=== PATIENT | male | born 1940 | race Caucasian/White ===

== ENCOUNTER 2018-10-16 12:43 | Outpatient (REF) | payer MEDICARE, BC, SELFPAY ==
[2018-10-16 17:01] LABS: HCT 51.7 % (40.0-50.0); HGB 16.7 g/dL (13.5-17.5); Mean Corp. HGB Concentration 32.3 g/dL (32.0-36.0); Mean Corpuscular Hemoglobin 29.5 pg (27.0-33.0); Mean Corpuscular Volume 91.2 fL (80-95); Mean Platelet Volume 11.7 fL (8.0-11.0); Platelet Count 202 x1000/uL (130-400); RBC 5.67 m/cumm (4.50-6.00); RBC Distribution Width 15.3 % (11.8-14.1); White Blood Cell Count 9.86 k/cumm (4.4-10.8)
[2018-10-16 17:14] LABS: ALT 39 U/L (12-78); AST 30 U/L (15-37); Albumin 3.9 g/dL (3.4-5.0); Alkaline Phosphatase 141 U/L (46-116); Anion Gap 7.6 mmol/L (3-11); BUN 20 mg/dL (7-18); Bilirubin, Total 0.7 mg/dL (0.2-1.0); CO2 30.4 mmol/L (21.0-32.0); CREATININE 1.25 mg/dL (0.70-1.30); Calcium 9.3 mg/dL (8.5-10.1); Chloride 105 mmol/L (98-107); Estimated GFR 55.86 (mL/min/1.73m2); Glucose 74 mg/dL (70-100); Potassium 3.8 mmol/L (3.5-5.1); Sodium 143 mmol/L (136-145); TSH 1.17 uIU/mL (0.358-3.74); Total Protein 7.4 g/dL (6.4-8.2)
[2018-10-16 18:53] LABS: Hemoglobin A1C 5.9 % (4.5-6.2)
== END 2018-10-16 13:03 ==
LOC: NCHCN 12:43
PROVIDERS: PCP Internal Medicine; Visit Provider Internal Medicine
DX: R03.0 Elevated blood-pressure reading, without diagnosis of hypertension (principal); R60.0 Localized edema; R73.01 Impaired fasting glucose; R42 Dizziness and giddiness; M48.00 Spinal stenosis, site unspecified
CPT/HCPCS: 80053; 85027; 83036; 84443

== ENCOUNTER 2019-01-08 22:05 | Outpatient (REF) | payer MEDICARE, BC, SELFPAY ==
[2019-01-08 22:34] LABS: Anion Gap 8.4 mmol/L (3-11); BUN 18 mg/dL (7-18); CO2 24.6 mmol/L (21.0-32.0); CREATININE 1.22 mg/dL (0.70-1.30); Calcium 8.9 mg/dL (8.5-10.1); Chloride 105 mmol/L (98-107); Estimated GFR 57.45 (mL/min/1.73m2); Glucose 155 mg/dL (70-100); Potassium 4.1 mmol/L (3.5-5.1); Sodium 138 mmol/L (136-145)
== END 2019-01-08 22:25 ==
LOC: NCHCN 22:05
PROVIDERS: PCP Internal Medicine; Visit Provider Internal Medicine
DX: R03.0 Elevated blood-pressure reading, without diagnosis of hypertension (principal); I63.9 Cerebral infarction, unspecified
CPT/HCPCS: 80048

== ENCOUNTER 2019-10-25 11:12 | Outpatient (REF) | payer MEDICARE, BC, SELFPAY ==
[2019-10-25 21:23] LABS: Abs Immature Grans 0.03 k/cumm (0.0-0.09); Absolute Basophil Count 0.03 k/cumm (0.0-0.2); Absolute Lymphocyte Count 1.38 k/cumm (1.2-3.4); Basophils % 0.3; Eosinophils % 1.8; HCT 42.7 % (40.0-50.0); HGB 13.9 g/dL (13.5-17.5); Immature Grans % 0.3 %; Lymphocytes % 12.1; Mean Corp. HGB Concentration 32.6 g/dL (32.0-36.0); Mean Corpuscular Hemoglobin 28.6 pg (27.0-33.0); Mean Corpuscular Volume 87.9 fL (80-95); Mean Platelet Volume 10.4 fL (8.0-11.0); Monocytes % 8.8; Neutrophils % 76.7; Platelet Count 384 x1000/uL (130-400); RBC 4.86 m/cumm (4.50-6.00); RBC Distribution Width 13.3 % (11.8-14.1); White Blood Cell Count 11.42 k/cumm (4.4-10.8)
[2019-10-25 21:24] LABS: Absolute Eosinophil Count 0.21 k/cumm (0.0-0.7); Absolute Neutrophil Count 8.76 k/cumm (1.2-6.7)
[2019-10-25 21:41] LABS: ALT 26 U/L (16-63); AST 21 U/L (15-37); Albumin 2.9 g/dL (3.4-5.0); Alkaline Phosphatase 193 U/L (46-116); Anion Gap 9.5 mmol/L (3-11); BUN 19 mg/dL (7-18); Bilirubin, Total 0.4 mg/dL (0.2-1.0); CO2 26.5 mmol/L (21.0-32.0); CREATININE 1.12 mg/dL (0.70-1.30); Calcium 9.8 mg/dL (8.5-10.1); Chloride 105 mmol/L (98-107); Glucose 111 mg/dL (74-106); Sodium 141 mmol/L (136-145); TSH 1.45 uIU/mL (0.36-3.74)
== END 2019-10-25 11:32 ==
LOC: NCHCN 11:12
PROVIDERS: PCP Internal Medicine; Visit Provider Internal Medicine
DX: R19.7 Diarrhea, unspecified (principal)
CPT/HCPCS: 80053; 84443; 85025

== ENCOUNTER 2019-10-26 21:42 | Outpatient (REF) | payer MEDICARE, BC, SELFPAY ==
[2019-10-29 11:46] LABS: Campylobacter PCR Negative (Negative); Salmonella PCR Negative (Negative); Shiga Toxin PCR Negative (Negative); Shigella/Enteroinvasive Ecoli Negative (Negative)
== END 2019-10-26 22:02 ==
LOC: NCHCN 21:42
PROVIDERS: PCP Internal Medicine; Visit Provider Internal Medicine
DX: R19.7 Diarrhea, unspecified (principal)
CPT/HCPCS: 87505; 87177; 87324

== ENCOUNTER 2019-11-17 11:15 | Inpatient (IN) | payer MEDICARE, BC, SELFPAY ==
[2019-11-17] VITALS (58 sets, daily range): BP systolic 75–226; BP diastolic 59–208; PULSE 62–114; RESP 11–25; TEMP 36.9–37.7; O2SAT 82–96
--- NOTE | 2019-11-17 12:06 | ED.GENADUL_ITS ---
Discharge Plan Disposition Patient Disposition: [facility] INPATIENT Condition: Serious Discharge Details Chief Complaint: GenMedical Clinical Impression: Lung cancer metastatic to bone Primary Care Provider: Ghazala Clements ED Provider: Sammy Crespo Home Meds and New Rx's Prescriptions: No Action dexamethasone 2 mg Tablet 2 mg PO BID RF: 0 gabapentin 300 mg Capsule 300 mg PO TID RF: 0 morphine 15 mg Tablet Extended Release 15 mg PO BID RF: 0 oxycodone 5 mg Tablet 5 - 10 mg PO .Q4-6 HOURS RF: 0 atorvastatin 40 mg Tablet 40 mg PO DAILY RF: 0 glucosamine sulfate 500 mg Tablet 1,500 mg PO DAILY PRNRF: 0 aspirin [Aspirin Low Dose] 81 mg Tablet,Delayed Release (Dr/Ec) 81 mg PO DAILY RF: 0 escitalopram oxalate 10 mg Tablet 10 mg PO DAILY RF: 0 melatonin 5 mg Tablet 10 mg PO DAILY PRNRF: 0 Medical Decision Making 79-year-old male with a distant history of bladder cancer, neobladder for which he self caths, status post renal cancer, who was admitted to [facility] 2 weeks ago with a new diagnosis of chest masses that he states is large cell lung cancer. He received 10 days of radiation in the hospital and around discharge. He presents today due to increasing pain from known right neck mass. He was started on oral morphine 30 mg twice daily that was weaned to 15 mg 1 day ago due to oversedation. He also has oxycodone 10 mg tablets. He arrives with a temp of 37, pulse 100, pressure 159/96. 92% sat on room air. Records obtained and reviewed. Patient has bone metastases involving C7 and T1 vertebral bodies based on records from [facility]. The mass is abutting the C8 nerve root. He has been taking dexamethasone with recent schedule of 2 mg twice daily for 1 week, then 2 mg daily x3 days, then 1 mg daily x3 days as a taper. Clinic notes will indicate some increase in pain after first attempt a dexamethasone taper. He is scheduled to see oncology as an outpatient early November to discuss chemotherapy options. Labs: Sodium 137, potassium 4.5, chloride 99, BUN 26 and creatinine 1.0, AST 20, ALT 32, alk phos 198. CBC with white count 21, hematocrit 40, platelets 270. Elevated white blood cell count may be due to either recent radiation or high- dose steroids. Imaging: No evidence of acute intracranial process. Findings suggestive of metastatic disease involving the C7 vertebral body, possible nondisplaced fracture of the left transverse process of T1. There is 3 cm right upper lobe medial lung mass, bony destructive disease at the T7 vertebral body, possible right vocal cord mass. 1.6 cm hypodense mass in the right lobe of the liver. Bony lysis of L2 vertebral body. Possible additional area of bony lysis of the left ilium. Please see formal report. Following ministration of analgesia, patient's blood pressure improved, pulse dropped approximately 25 points. He did also require PRN use of oxygen and is become mildly agitated and anxious. His stated he has had poor reactions to benzodiazepines in the past, he did have some pruritus from the narcotic and therefore administered Benadryl. Patient has had some control of his pain, but I do feel would benefit from an admission for symptom control and consideration of consultation with palliative care. I was able to speak to Dr. Choudhury, who recommended placement of a Duragesic patch and the use of IV morphine overnight. I have consulted her formally to see the patient as well. After approximate 5 hours of care, patient became somewhat more delirious and pulled out his IV. He was given Haldol for agitation and soft restraints were applied for danger of the patient pulling additional lines or tubes. I discussed the case with on-call hospitalist medicine at [facility], no bed available for non-ICU transfer at [facility]. Patient to be admitted to the hospitalist service. HPI General Mode of arrival: ambulatory . Date/Time Provider Initiated Documentation: 11/17/19 11:16 . Limitations to Documentation: no limitations . Information obtained by: patient and family . History of Present Illness 79 year old M presents to the emergency department with the chief complaint of Neck and back pain, recent diagnosis lung cancer, described as moderate, and is localized to the neck, chest, back and right. Patient reports no radiation. Patient started experiencing this day(s) and it has been intermittent. No relieving factors improve symptom(s), No exacerbating factors reported . Patient notes other (Right arm weakness and right pinky numbness). Patient did receive the following treatments prior to arrival, other (Prescription narcotics) Related Data Home Medications Medication Instructions Recorded Confirmed aspirin [Aspirin Low Dose] 81 mg PO DAILY 11/17/19 11/17/19 atorvastatin 40 mg PO DAILY 11/17/19 11/17/19 dexamethasone 2 mg PO BID 11/17/19 11/17/19 escitalopram oxalate 10 mg PO DAILY 11/17/19 11/17/19 gabapentin 300 mg PO TID 11/17/19 11/17/19 glucosamine sulfate 1,500 mg PO DAILY PRN 11/17/19 11/17/19 melatonin 10 mg PO DAILY PRN 11/17/19 11/17/19 morphine 15 mg PO BID 11/17/19 11/17/19 oxycodone 5 - 10 mg PO .Q4-6 HOURS 11/17/19 11/17/19 Allergies Allergy/AdvReac Type Severity Reaction Status Date / Time No Known Allergies Allergy Unverified 11/17/19 11:31 General Stated Complaint: GenMedical MARI: 3 Review of Systems Narrative: No fever, chills, fall, headache. No chest pain or shortness of breath. Complains of right neck pain that was worse this morning. 6 systems reviewed and otherwise negative. [facility] Social History Smoking/Tobacco Use Status: Former Tobacco Use Alcohol Intake: current Alcohol type: beer Substance use type: does not use Exam Narrative Exam Narrative: GEN: awake, alert, oriented 3. Pleasant, well groomed, interactive. HEAD: Normocephalic, atraumatic ENT: Mucous membranes moist, oropharynx partially edentulous, External ear exam unremarkable EYES: PERRL, EOMI NECK: Full ROM, no OBIE, no menigismus CHEST/RESP: Nontender, diminished bilateral, no wheeze/rhonchi/rales CARDIOVASCULAR: RRR, no murmur, rub morena. 2+ Rad pulse bilateral ABDOMEN: Soft, nontender, no mass. +Bowel sounds EXT: Right hand weakness. Patient unable to make the okay sign. Weak flexion of all fingers. Decreased sensation overlying fifth digit. Left upper extremity unremarkable. Ecchymosis on bilateral upper extremities. Neuro: Grossly normal neurologic exam, conversant, interactive. Psych: Speech fluent, thoughts congruent, affect normal Course Vital Signs Vital signs: Vital Signs Temperature 37.1 C 11/17/19 11:24 Pulse 101 H 11/17/19 11:24 Respiratory Rate 16 11/17/19 11:24 Blood Pressure 159/96 H 11/17/19 11:24 Pulse Oximetry 91 L 11/17/19 11:24 Temperature 37.1 C 11/17/19 11:24 Temperature Source Skin 11/17/19 11:24 Pulse 101 H 11/17/19 11:24 Respiratory Rate 22 11/17/19 11:39 Respiratory Effort 11/17/19 11:39 Respiratory Depth Normal 11/17/19 11:39 Respiratory Pattern Normal 11/17/19 11:39 Blood Pressure 159/96 H 11/17/19 11:24 Blood Pressure Position Sitting 11/17/19 11:24 Pulse Oximetry 91 L 11/17/19 11:24 Oxygen Delivery Method Room Air 11/17/19 11:24 Oxygen Flow Rate 0 11/17/19 11:24 Pain Level 8 11/17/19 11:24
[2019-11-17] MEDS: HYDROmorphone 2 MG/ML VIAL 0.5 MG IVP ×2 (12:08→15:31)
[2019-11-17 12:17] LABS: Absolute Eosinophil Count 0.06 k/cumm (0.0-0.7); Absolute Lymphocyte Count 0.71 k/cumm (1.2-3.4); Absolute Neutrophil Count 18.51 k/cumm (1.2-6.7); Eosinophils % 0.3; HCT 40.9 % (40.0-50.0); HGB 13.1 g/dL (13.5-17.5); Immature Grans % 0.5 %; Lymphocytes % 3.3; Mean Corpuscular Hemoglobin 28.2 pg (27.0-33.0); Mean Corpuscular Volume 88.1 fL (80-95); Mean Platelet Volume 10.3 fL (8.0-11.0); Monocytes % 9.3; Neutrophils % 86.6; RBC 4.64 m/cumm (4.50-6.00); RBC Distribution Width 14.6 % (11.8-14.1); White Blood Cell Count 21.37 k/cumm (4.4-10.8)
[2019-11-17 12:18] LABS: Absolute Monocyte Count 1.99 k/cumm (0.11-0.7)
[2019-11-17 12:28] LABS: INR 1.1 (0.9-1.1)
[2019-11-17 12:29] LABS: Basophilic Stippling Present; Diff Comment Agrees w/ Instrument; Platelet Count 270 x1000/uL (130-400)
[2019-11-17 12:30] LABS: ALT 32 U/L (16-63); AST 20 U/L (15-37); Albumin 2.3 g/dL (3.4-5.0); Alkaline Phosphatase 198 U/L (46-116); Anion Gap 8.3 mmol/L (3-11); BUN 26 mg/dL (7-18); Bilirubin, Total 0.7 mg/dL (0.2-1.0); CO2 29.7 mmol/L (21.0-32.0); CREATININE 1.03 mg/dL (0.70-1.30); Calcium 9.2 mg/dL (8.5-10.1); Chloride 99 mmol/L (98-107); Glucose 114 mg/dL (74-106); Magnesium 1.8 mg/dL (1.8-2.4); Poikilocytes 1+; Polychromasia Present; Potassium 4.5 mmol/L (3.5-5.1); Sodium 137 mmol/L (136-145); Total Protein 6.3 g/dL (6.4-8.2)
[2019-11-17] MEDS: HYDROmorphone 2 MG/ML VIAL 1 MG IVP (12:53)
--- NOTE | 2019-11-17 13:14 | DI.CT_ITS ---
EXAM: CT HEAD CERVICAL SPINE WO CLINICAL HISTORY: LUNG CA, NECK MASS, PAIN TECHNIQUE: Imaging Protocol: Axial computed tomography images with coronal and sagittal reformatted images were created and reviewed COMPARISON: No exams were available for comparison FINDINGS: Head CT Ventricles and Extra axial spaces: Normal in size and morphology for the patient's age. Hemorrhage: None. Cerebral parenchyma: Mild white matter changes of small vessel disease. Midline shift: None. Brainstem/Cerebellum: Normal. Calvarium: A lucency is seen in the frontal skull, which could represent a metastatic lesion or multi ple myeloma. Other smaller low-density lesions are questioned. Visualized Paranasal sinuses/Mastoids: Clear. IMPRESSION: Lytic lesion in the frontal skull suspicious for metastatic lesion. No acute abnormality is seen in t he brain. FINDINGS: Cervical Spine CT BONES: There is a nondisplaced fracture through the left transverse process T1. No other areas of acu te fracture are seen. There is a large area of abnormal lucency with a lytic lesion involving the C7 vertebral body, eccentric toward the right. There is some surrounding soft tissue mass. There are o ther lucencies seen in more superior vertebral bodies. Findings are highly suspicious for metastatic disease. There has been previous laminectomy from C3 through T1. Extensive degenerative changes ar e noted throughout. SOFT TISSUES: No paraspinal hematoma. The airway appears intact. Degenerative disc changes and facet degenerative changes are seen . IMPRESSION: Findings suspicious for widespread bony metastases, with the largest lytic lesion involving C7. Ther e is a fracture of the left transverse process of T1. DATA REPOSITORY: All CT scans at this facility are submitted to the National Radiology Data Registry (NRDR) Dose Index Registry (DIR) with the [employer] (ACR). RADIATION OPTIMIZATION: All CT scans at this facility use at least one of these dose optimization te chniques: automated exposure control; mA and/or kV adjustment per patient size (includes targeted exa ms where dose is matched to clinical indication); or iterative reconstruction.
--- NOTE | 2019-11-17 13:24 | DI.CT_ITS ---
EXAM: CT NECK CHEST ABD AND PEL W CLINICAL HISTORY: BACK PAIN, LUNG CANCER TECHNIQUE: Images were performed from the clavicles through the ischial tuberosities after IV and wi thout oral contrast. The exam is limited by respiratory motion. COMPARISON: CT HEAD CERVICAL SPINE WO from 11/17/2019 FINDINGS: Chest: There is a spiculated-appearing mass seen in the right upper lobe medially adjacent to the lef t superior hilum. The findings are highly suspicious for primary lung carcinoma. The mass measures roughly 3.7 cm AP x 2.3 cm transverse x 4.5 cm cephalocaudad. There are a few other smaller adjacent nodules. There are underlying emphysematous changes greatest at the lung apices. There is basilar atelectasis and fibrotic changes. There are small hilar and mediastinal lymph nodes. There is a tra ce pericardial effusion. The aorta is normal in diameter. Esophagus contains air and debris. A lar ge lytic lesion is seen in the T1 vertebral body. There are other areas of lucency throughout the sp ine, which also likely represent metastatic disease. There has been apparent fusion in the midthorac ic spine. Metastatic lesions are more difficult to detect given underlying osteopenia. There is a ly tic lesion in the left scapula with surrounding soft tissue mass. Abdomen and pelvis: There are several ill-defined lesions in the liver suspicious for metastatic lesi ons. The largest is anteriorly in the right lobe and measures 1.6 cm. There is no biliary dilatatio n. Stone versus polyp is seen in the gallbladder. There is no abnormal gallbladder wall thickening or distention. The spleen, pancreas and adrenals are unremarkable. There are multiple bilateral bibiana al cysts. There is some inferior parenchymal scarring on the left kidney as well as a calcification. No hydronephrosis is seen. There is a large parapelvic cyst on the left. There is a 12 millimeter nodule posterior to the left adrenal gland suspicious for a metastatic nodule. There are a few other small mesenteric deposits. Patient is status post prostatectomy. The urinary bladder is not seen. There has been previous bowel surgery. No bowel dilatation is seen. No free air or free fluid is pr esent. Multiple lucencies are seen throughout the spine as well as pelvis consistent with metastatic disease. IMPRESSION: Right upper lobe lung mass. Extensive bony metastases. Liver metastases.
[2019-11-17] MEDS: Omnipaque 350 MG/ML 100 ML BTL IJ (13:41)
[2019-11-17] MEDS: Omnipaque 350 MG/ML 50 ML BTL IJ (13:41)
--- NOTE | 2019-11-17 13:58 | DI.VRAD_ITS ---
PROCEDURE INFORMATION: Exam: CT Head Without Contrast Exam date and time: 11/17/2019 12:03 PM Age: 79 years old Clinical indication: Neck pain and other: Mass, lung CA TECHNIQUE: Imaging protocol: Computed tomography of the head without contrast. COMPARISON: No relevant prior studies available. FINDINGS: Chronic white matter changes of probable small vessel disease. No evidence of hemorrhage. No mass effect. No acute intracranial abnormality. IMPRESSION: No evidence of acute intracranial process. PROCEDURE INFORMATION: Exam: CT Cervical Spine Without Contrast Exam date and time: 11/17/2019 12:03 PM Age: 79 years old Clinical indication: Neck pain and other: Mass, lung CA TECHNIQUE: Imaging protocol: Computed tomography images of the cervical spine without contrast. COMPARISON: No relevant prior studies available. FINDINGS: Extensive prior laminectomy at C3 through the top of the thoracic spine and below the level of imaging. Marked diffuse degenerative disc and facet disease. Reversal of the normal cervical lordosis. No focal subluxation. Suggestion of bony lysis of the inferior and right portions of the C7 vertebral body. Metastatic disease would have to strongly be considered. Possible nondisplaced fracture of the left transverse process of T1. IMPRESSION: 1. Findings suggesting metastatic disease involving the C7 vertebral body. 2. Possible nondisplaced fracture of the left transverse process of T1. 3. Extensive prior cervical laminectomy. Dictated and Authenticated by: Son Joy MD. Ordering:ANTONELLA Christianson MD
--- NOTE | 2019-11-17 14:38 | DI.VRAD_ITS ---
PROCEDURE INFORMATION: Exam: CT Neck With Contrast Exam date and time: 11/17/2019 1:23 PM Age: 79 years old Clinical indication: Other: Back pain, neck pain; Other: Neck mass, lung CA; Mass, lump, or swelling in neck TECHNIQUE: Imaging protocol: Computed tomography images of the neck with intravenous contrast. COMPARISON: No relevant prior studies available. FINDINGS: Marked asymmetry to the larynx with a possible mass involving the right vocal cord. Bony destructive process involving the T7 vertebral body consistent with metastatic disease without a significant soft tissue component. Suggestion of a nondisplaced fracture of the left transverse process of T1. No significant cervical adenopathy. 3 cm right upper lobe medial lung mass consistent with a primary bronchogenic carcinoma. IMPRESSION: 1. Metastatic disease to the lower cervical spine with a right upper lobe mass suggesting a primary malignancy. 2. Possible right vocal cord mass. PROCEDURE INFORMATION: Exam: CT Chest With Contrast Exam date and time: 11/17/2019 1:23 PM Age: 79 years old Clinical indication: Other: Back pain, neck pain; Other: Neck mass, lung CA; Mass, lump, or swelling in neck TECHNIQUE: Imaging protocol: Computed tomography of the chest with intravenous contrast. COMPARISON: No relevant prior studies available. FINDINGS: Approximate 3 cm medial right upper lobe mass suggesting a primary bronchogenic carcinoma. Chronic lung disease with emphysematous change. Bibasilar consolidation right greater than left most likely representing atelectasis. Lytic lucency to the left posterolateral aspect of the T10 vertebral body suggesting metastatic disease. IMPRESSION: Findings consistent with a primary bronchogenic carcinoma with metastatic disease to the lower thoracic spine. PROCEDURE INFORMATION: Exam: CT Abdomen And Pelvis With Contrast Exam date and time: 11/17/2019 1:23 PM Age: 79 years old Clinical indication: Other: Back pain, neck pain; Other: Neck mass, lung CA; Mass, lump, or swelling in neck TECHNIQUE: Imaging protocol: Computed tomography of the abdomen and pelvis with intravenous contrast. COMPARISON: No relevant prior studies available. FINDINGS: 1.6 cm hypodense mass in the right lobe of the liver suggesting metastatic disease with a possible 1 cm mass slightly more superior and anterior and 1 other 7 mm more inferior and lateral. Cholelithiasis. Multiple renal cysts. Bony lysis of the left posterolateral aspect of the L2 vertebral body extending into the lamina and pedicle consistent with metastatic disease. No significant involvement of the central canal is present. Bony lysis of the left iliac wing consistent with metastatic disease. Possible additional areas of bony lysis in the left ilium adjacent to the left SI joint. Diffuse degenerative disc and facet disease of the lumbar spine. Prior prostatectomy. No focal inflammatory process. No significant free fluid. IMPRESSION: Hepatic and bony metastatic disease as outlined above. Dictated and Authenticated by: Son Joy MD. Ordering:ANTONELLA Christianson MD
[2019-11-17] MEDS: diphenhydrAMINE 50 MG/ML VIAL 25 MG IVP (15:32)
[2019-11-17] MEDS: Haloperidol 5 MG/ML VIAL 4 MG IM/IV (16:47)
--- NOTE | 2019-11-17 16:51 | HPE_ITS ---
Date of service: 11/17/19 Time of Service: 16:51 Assessment and Plan Assessment and plan (1) Lung cancer: Start date: 11/17/19 Start time: 17:06 Status: Chronic Assessment and plan: Diagnosis of Lung Ca with bone mets in last 2 weeks at [facility], 10 rounds radiation. Presents for worsening pain. Will start on fentanyl patch, IV morphine for and steroid burst. Agitated at times. Head CT without Brain mets. Lorazepam for agitation Palliative to see patient. (2) Bone metastases: Start date: 11/17/19 Start time: 17:07 Status: Acute Assessment and plan: As above (3) Cachexia: Start date: 11/17/19 Start time: 17:07 Status: Acute Assessment and plan: From cancer. (4) History of renal carcinoma: Start date: 11/17/19 Start time: 17:07 Status: Acute Assessment and plan: Bladder cancer with renal carcinoma in remission until recently. New onset Large cell lung ca. see above (5) Neurogenic bladder: Start date: 11/17/19 Start time: 17:09 Status: Acute Assessment and plan: From bladder cancer in the past. Has a stoma and requires self cath. Will continue self cath while in hospital. (6) Hyperlipidemia: Start date: 11/17/19 Start time: 17:09 Status: Acute Assessment and plan: On statin. Continue Above case discussed with Dr. Agudelo who is in agreement. History of Present Illness History of Present Illness Chief Complaint: Lung Ca with Bone mets, pain Narrative: 79 y.o male recently diagnosed with bone mets at [facility]. Found to have Large cell carcinoma with bone mets started on radiation while [place] presents to [facility] today with worsening pain, agitation at times. Imaging in the ED reveals Metastatic disease to the lower cervical spine with a right upper lobe mass suggesting a primary malignancy. Possible right vocal cord mass. He was recently weaned from morphine 30 mg BID to 15 mg 1 day ago for oversedation. Palliative consult placed by the ED. Mr. Ro was agitated when evaluating, pulling at lines and not paying attention to questions. was able to answer questions. PMH included renal carcinoma, bladder cancer with neobladder and stoma which he self caths through stoma, HLD. He is being admitted for pain management. Labs in ED with elevated WBC at 21.37 however recently on dexamethasone for bone pain with 10 rounds radiation, alk phosphate elevated; otherwise unremarkable. No cough, fever. Dr. Choudhury with patient at this time to discuss goals of care. We will admit him to get his pain at comfortable level. Fentanyl patch with hydromorphone for comfort. Prednisone burst for bone pain. He did receive haldol in ED for agitation will have lorazepam IV for agitation prn. Review of Systems All systems reviewed & are unremarkable except as noted in HPI and below PFSH Social History Smoking/Tobacco Use Status: Former Tobacco Use Alcohol Intake: current Alcohol type: beer Substance use type: does not use Meds Home Medications and Allergies Home Medications Medication Instructions Recorded Confirmed Type aspirin [Aspirin Low Dose] 81 mg PO DAILY 11/17/19 11/17/19 History atorvastatin 40 mg PO DAILY 11/17/19 11/17/19 History dexamethasone 2 mg PO BID 11/17/19 11/17/19 History escitalopram oxalate 10 mg PO DAILY 11/17/19 11/17/19 History gabapentin 300 mg PO TID 11/17/19 11/17/19 History glucosamine sulfate 1,500 mg PO DAILY PRN 11/17/19 11/17/19 History melatonin 10 mg PO DAILY PRN 11/17/19 11/17/19 History morphine 15 mg PO BID 11/17/19 11/17/19 History oxycodone 5 - 10 mg PO .Q4-6 HOURS 11/17/19 11/17/19 History Allergies Allergy/AdvReac Type Severity Reaction Status Date / Time No Known Allergies Allergy Unverified 11/17/19 11:31 Exam Const General: anxious and ill appearing Nutritional Appearance: cachectic and malnourished Orientation: alert, awake and other (agitated) [facility] Head: normal to inspection and atraumatic Ears: hearing grossly normal bilaterally Mouth: moist mucous membranes Eyes Conjunctivae: conjunctivae normal Sclera: sclerae normal Pupils: PERRL EOM: EOM intact bilaterally Neck Neck: full ROM and no JVD Lymphatic: no lymphadenopathy noted Chest Chest: normal inspection of the chest Resp Effort & Inspection: normal respiratory effort and able to speak in complete sentences Auscultation: diminished lung sounds Cardio Rate: regular rate Rhythm: regular rhythm Heart Sounds: no gallops and no murmurs GI Palpation: soft and no hepatosplenomegaly Auscultation: normal bowel sounds General: deferred Back/Spine/Pelvis Back: back tenderness Skin Wounds: no wounds Neuro General: alert, awake and other (AGITATED) Extrem Right upper extremity: hand (weakness, decreased sensation) Left upper extremity: normal to inspection and full ROM Right lower extremity: full ROM Left lower extremity: full ROM Psych Mood: anxious mood Results Labs Result diagrams: 11/17/19 11:30 11/17/19 11:30 Labs: Laboratory Results - last 24 hr 11/17/19 11/17/19 11/17/19 11:30 11:30 11:30 WBC 21.37 H RBC 4.64 Hgb 13.1 L Hct 40.9 MCV 88.1 MCH 28.2 MCHC 32.0 RDW 14.6 H Plt Count 270 D MPV 10.3 Immature Gran % 0.5 Neutrophils % 86.6 Lymphocytes % 3.3 Monocytes % 9.3 Eosinophils % 0.3 Basophils % 0.0 Absolute Neutrophils 18.51 H Absolute Lymphocytes 0.71 L Absolute Monocytes 1.99 H Absolute Eosinophils 0.06 Absolute Basophils 0.00 Differential Comment Agrees w/ instrument RBC Morphology See below Polychromasia Present Poikilocytosis 1+ Basophilic Stippling Present PT 11.0 INR 1.1 Sodium 137 Potassium 4.5 Chloride 99 Carbon Dioxide 29.7 Anion Gap 8.3 BUN 26 H Creatinine 1.03 Estimated GFR/1.73 m2 >= 60.00 Glucose 114 H Calcium 9.2 Magnesium 1.8 Total Bilirubin 0.7 AST 20 ALT 32 Alkaline Phosphatase 198 H Total Protein 6.3 L Albumin 2.3 L Urine Color Urine Clarity Urine pH Ur Specific [place] Urine Protein Urine Ketones Urine Blood Urine Nitrite Urine Bilirubin Urine Urobilinogen Ur Leukocyte Esterase Urine Glucose 11/17/19 12:04 WBC RBC Hgb Hct MCV MCH MCHC RDW Plt Count MPV Immature Gran % Neutrophils % Lymphocytes % Monocytes % Eosinophils % Basophils % Absolute Neutrophils Absolute Lymphocytes Absolute Monocytes Absolute Eosinophils Absolute Basophils Differential Comment RBC Morphology Polychromasia Poikilocytosis Basophilic Stippling PT INR Sodium Potassium Chloride Carbon Dioxide Anion Gap BUN Creatinine Estimated GFR/1.73 m2 Glucose Calcium Magnesium Total Bilirubin AST ALT Alkaline Phosphatase Total Protein Albumin Urine Color Cancelled Urine Clarity Cancelled Urine pH Cancelled Ur Specific [place] Cancelled Urine Protein Cancelled Urine Ketones Cancelled Urine Blood Cancelled Urine Nitrite Cancelled Urine Bilirubin Cancelled Urine Urobilinogen Cancelled Ur Leukocyte Esterase Cancelled Urine Glucose Cancelled Last Vital Signs Temp 37.1 C 11/17/19 11:24 Pulse 82 11/17/19 15:16 Resp 15 11/17/19 15:30 BP 141/93 H 11/17/19 15:02 Pulse Ox 95 11/17/19 15:30
--- NOTE | 2019-11-17 16:58 | NUR.NOTE ---
16:35 patient pulling IV out yelling for singer songwriter to not touch him. Swinging, hitting and kicking at staff. [employer] attempted to reorient patient and tried to help with IV and patient continues to yell, kick and hit staff. Placed in soft restraints per MD and Haldol given IM.
[2019-11-17] MEDS: fentaNYL 25 MCG PATCH TD (17:03)
--- NOTE | 2019-11-17 17:11 | NUR.NOTE ---
17:10 patient remains in soft restraints. Argumentative, with staff and MD. Swearing and refusing to let staff touch him.
[2019-11-17] MEDS: Gabapentin 400 MG CAP 1200 MG PO (19:14)
--- NOTE | 2019-11-17 19:42 | PCNE_ITS ---
Date of service: 11/17/19 History of Present Illness History of Present Illness Chief Complaint: Uncontrolled pain. Agitation. New dx of widespread lung cancer. Narrative: I was asked by Dr Jay Crespo from the ER to see Dandy as he was being worked up for admission to [facility] to help control his pain and agitation. Dandy was recently (11/02/19) diagnosed with widely metastatic lung cancer. He has already survived both bladder and renal cancers. This cancer appears to be very aggressive and is in an advanced stage. (IV) His , Gabbi, had asked for palliative care services from inpatient [facility] oncology; she reports that she was told it wasn't time for palliative care yet. Last week, Dandy was in [facility] x 5 nights. Gabbi's brother is an MD and he suggested she again advocate for palliative care at [facility]. Most of Dandy's history I gleaned from his , Gabib. He was agitated, combative, in restraints during my visit with him. 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 He is very angry and suspicious of everyone around him. He was diagnosed just 2 weeks and 2 days prior to his admission with a widespread lung cancer. He was in [facility] x 5 days to receive radiation to his cervical spine as his most severe pain is in his right UE, of a neurological nature with a burning type pain. His is exhausted, overwhelmed and needing someone to guide her through her 's illness. Consults Consult date: 11/17/19 Requesting physician: Sammy Crespo Assessment and Plan Assessment and plan (1) Cachexia: Status: Chronic Assessment and plan: losing weight no appetite thin, with muscle atrophy (2) Bone metastases: Status: Chronic Assessment and plan: pain uncontrolled on admission plan to start is fentanyl patch 25 mcg Dandy pulled out his IV I suspect he would pull out a SC drip of pain meds, at least for now as for his neuropathic pain, will increased from 600 mg daily to 600 mg tid to start, and suspect he will need to increase again to 1200 mg tid, the max dose I don't think he will be able to converse until his pain is controlled. (3) Lung cancer: Status: Chronic Assessment and plan: widely metastatic third cancer he has faced large cell Gabbi says they have apt with oncology week of Nov 26 but at this time Dandy seems to be leaning toward no treatment given the aggressiveness and widespread nature of his disease, could at any time (4) History of renal carcinoma: Status: Chronic Assessment and plan: Has a neobladder. Usually self caths. Given his stroke affecting his left hand and his spinal lesion affecting his right hand, unable to do so now. worried about this. Hospitalist team will have Dr Figueroa see Dandy on Tuesday. In the meantime, left 3 of his usual type catheters and advised though they come lubed, he will need more. She suggested the nurse insert the tip of the catheter into the stoma and then let Dandy finish--but given his state of agitation, he doesn't appear able at this time. 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 Assessment and plan: pain control is his primary medical need at this time chose fentanyl as less likely to peel off patch than pull out SCC or IV at this time also patch will transfer well to home--IF he is able to go home (8) H/O partial nephrectomy: Status: Chronic (9) Agitation: Status: Acute Assessment and plan: advised haldol, until he is calm unclear how much his mental state is due to uncontrolled pain, how much is toxic encephalopathy, apparently does NOT have brain mets but not certain of this (10) Paranoia: Status: Acute Assessment and plan: makes it very hard to interact with him doesn't like emotional of soft approaches, per straight shooter (11) History of stroke with residual effects: Status: Chronic Assessment and plan: right sided stroke with persistent motor effects KASH advise also that right sided strokes make insight into oneself VERY difficult (12) Neuropathic pain: Status: Acute Assessment and plan: increase gabapentin (13) Palliative care patient: Status: Acute Assessment and plan: will continue to follow (14) History of bladder cancer: Status: Acute (15) Metastases to the liver: Status: Acute Review of Systems Constitutional Constitutional: Reports anorexia, Reports body ache(s), Reports difficulty sleeping, Reports fatigue, Reports poor appetite, Reports weakness and Reports weight loss Comments: Dandy is having a rapid decline. Most upsetting to his is his behavioral changes. He is angry at everyone, including her. Eyes Eyes: Reports requires corrective lenses ENT Ears, Nose, Mouth, and Throat: Reports abnormal hearing, Reports neck pain and Reports disequilibrium Cardiovascular Cardiovascular: Reports dyspnea and Reports dyspnea on exertion Respiratory Respiratory: Reports dyspnea and Reports dyspnea on exertion Gastrointestinal Gastrointestinal: Reports early satiety Genitourinary Genitourinary: Reports difficulty urinating and Reports other (he has a neobladder and self-caths; unable to do so by himself now) Musculoskeletal Musculoskeletal: Reports abnormal gait, Reports back pain, Reports myalgias, Reports atrophy, Reports arthralgias, Reports limited range of motion, Reports loss of height, Reports muscle weakness, Reports neck pain, Reports radiating pain into limb and Reports stiffness Comments: just complete emergent radiation therapy to lesions of his cervical spine, in attempt to maintain use of his right hand unfortunately, use is compromised Integumentary/Breasts Skin/Breast: Reports dry skin Neurologic Neurologic: Reports abnormal hearing, Reports abnormal gait, Reports behavioral changes, Reports burning sensations, Reports confusion, Reports lack of coordin ation, Reports memory loss, Reports radicular pain, Reports paresthesias, Reports disequilibrium and Reports weakness Comments: reports majority of pain is in his RUE, but all over has both neuropathic pain and bone pain Psychiatric Psychiatric: Reports abnormal sleep pattern, Reports anxiety, Reports behavioral changes, Reports confusion, Reports difficulty concentrating, Reports hopelessness, Reports irritability, Reports anhedonia, Reports memory loss, Reports mood swings and Reports paranoia Endocrine Endocrine: Reports fatigue Hematologic/Lymphatic Hematologic/Lymphatic: Reports easy bruising ON LICENSE OF [facility] Medical History (Updated 11/18/19 @ 09:07 by Hilda Choudhury MD) Agitation (Acute) History of bladder cancer (Acute) History of stroke with residual effects (Chronic) left hand clumsy; right-sided stroke Metastases to the liver (Acute) Metastatic cancer to spine (Chronic) Neuropathic pain (Acute) Palliative care patient (Acute) Paranoia (Acute) Surgical History (Updated 11/18/19 @ 09:07 by Hilda Choudhury MD) H/O partial nephrectomy (Chronic) Family History (Updated 11/18/19 @ 08:46 by Hilda Choudhury MD) Brother No problems noted. Mother , Holocaust survivor; lived until her 80s No problems noted. Father , Holocaust survivor lived until his 80s No problems noted. Daughter Chronic mental illness Daughter No problems noted. 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 Daughters are from first marriage. Son adopted as a teen. Brother Jos lives across the street. His is Gabbi's best friend. Dandy quit smoking 5 yrs ago. Gabbi needing help in the home. Wants HH, maybe hospice. Pain uncontrolled since diagnosis. Exam Const General: in distress, anxious, combative, disheveled, frail appearing and ill appearing Nutritional Appearance: cachectic Orientation: oriented to person Limitations: behavioral limitations [facility] Head: normocephalic and atraumatic Ears: hearing grossly normal bilaterally and external ears normal General nose exam: external nose normal Face and sinus: normal facial exam, face symmetric and dry mucous membranes Mouth: malodorous breath Eyes Conjunctivae: conjunctivae normal Sclera: sclerae normal Pupils: PERRL Neck Neck: no lymphadenopathy and no JVD Resp Effort & Inspection: normal respiratory effort and tachypneic Auscultation: clear to auscultation bilaterally (Dandy intentionally making breath sounds, hard to evaluate) Cardio Rate: tachycardic Heart Sounds: S1 normal and S2 normal GI Inspection: scar and other (neobladder) Palpation: firm Skin General skin exam: dry skin and ecchymosis Nails: clubbing and discolored Neuro General: alert and awake Cognition: abnormal cognition Speech: abnormal speech (repetitive, cursing, tangential) Motor: strength abnormal Extrem General: muscle atrophy Psych Appearance: disheveled Speech and Movement: agitated and restless Mood: anxious mood, dysthymic mood, paranoid, angry and irritable mood Affect: anxious affect, hostile, dysphoric affect and irritable affect Attitude: belligerent, guarded and refuses to answer Thought Process: circumstantial, confabulating, illogical, impoverished, loose association and perseverating Insight: poor Judgment: poor Other: unable to have a conversation with Dandy Results Last Vital Signs Temp 99.9 F H 11/17/19 18:38 Pulse 81 11/17/19 18:38 Resp 18 11/17/19 18:38 BP 136/82 11/17/19 18:38 Pulse Ox 92 L 11/17/19 18:38 Labs Result diagrams: 11/17/19 11:30 11/17/19 11:30 Labs: Laboratory Results - last 24 hr 11/17/19 11/17/19 11/17/19 11:30 11:30 11:30 WBC 21.37 H RBC 4.64 Hgb 13.1 L Hct 40.9 MCV 88.1 MCH 28.2 MCHC 32.0 RDW 14.6 H Plt Count 270 D MPV 10.3 Immature Gran % 0.5 Neutrophils % 86.6 Lymphocytes % 3.3 Monocytes % 9.3 Eosinophils % 0.3 Basophils % 0.0 Absolute Neutrophils 18.51 H Absolute Lymphocytes 0.71 L Absolute Monocytes 1.99 H Absolute Eosinophils 0.06 Absolute Basophils 0.00 Differential Comment Agrees w/ instrument RBC Morphology See below Polychromasia Present Poikilocytosis 1+ Basophilic Stippling Present PT 11.0 INR 1.1 Sodium 137 Potassium 4.5 Chloride 99 Carbon Dioxide 29.7 Anion Gap 8.3 BUN 26 H Creatinine 1.03 Estimated GFR/1.73 m2 >= 60.00 Glucose 114 H Calcium 9.2 Magnesium 1.8 Total Bilirubin 0.7 AST 20 ALT 32 Alkaline Phosphatase 198 H Total Protein 6.3 L Albumin 2.3 L Urine Color Urine Clarity Urine pH Ur Specific [place] Urine Protein Urine Ketones Urine Blood Urine Nitrite Urine Bilirubin Urine Urobilinogen Ur Leukocyte Esterase Urine Glucose 11/17/19 12:04 WBC RBC Hgb Hct MCV MCH MCHC RDW Plt Count MPV Immature Gran % Neutrophils % Lymphocytes % Monocytes % Eosinophils % Basophils % Absolute Neutrophils Absolute Lymphocytes Absolute Monocytes Absolute Eosinophils Absolute Basophils Differential Comment RBC Morphology Polychromasia Poikilocytosis Basophilic Stippling PT INR Sodium Potassium Chloride Carbon Dioxide Anion Gap BUN Creatinine Estimated GFR/1.73 m2 Glucose Calcium Magnesium Total Bilirubin AST ALT Alkaline Phosphatase Total Protein Albumin Urine Color Cancelled Urine Clarity Cancelled Urine pH Cancelled Ur Specific [place] Cancelled Urine Protein Cancelled Urine Ketones Cancelled Urine Blood Cancelled Urine Nitrite Cancelled Urine Bilirubin Cancelled Urine Urobilinogen Cancelled Ur Leukocyte Esterase Cancelled Urine Glucose Cancelled
[2019-11-17] MEDS: Docusate Sodium 100 MG CAP PO (20:19)
[2019-11-17] MEDS: Dexamethasone 4 MG TAB PO (20:19)
[2019-11-17] MEDS: Haloperidol 1 MG TAB PO (20:19)
[2019-11-17] MEDS: MORPHine Oral Concentrate 20 MG/ML 5 MG PO ×2 (20:20→21:53)
--- NOTE | 2019-11-18 00:18 | NUR.NOTE ---
Patient was received in restraints at first assessment due to risky behavior in the ER. He had 4 point soft restraints. During assessment, patient state he wants the restraints removed and the reason why he was lashing out is because he was having a lot of pain and no one seeming to be understand the level of pain he was having. His restraints was removed and patient has been very cooperative with nursing and willing for care to be given at this time.
--- NOTE | 2019-11-18 08:11 | INITIAL_ITS ---
- If Service Date Differs Date of service: 11/18/19 Time of Service: 08:11 Care Management Initial Assess REASON FOR HOSPITALIZATION:: Lung cancer PAST MEDICAL HISTORY/PAST SURGICAL HISTORY:: Renal cancer. Bladder cancer. metastatic lung cancer PREVIOUS FUNCTIONAL STATUS/SOCIAL/FAMILY SUPPORTS:: Dandy lives in a single family home in [place] [facility] with his Gabbi. He is retired. Dandy had been independent with ADLs and all activities until recently when he was diagnosed with widespread metastatic lung disease. Shama have 3 children between them but all of them live outside of the area. One of Dandy's daughters is a physician and will be flying to [place] tomorrow to visit and assist with healthcare decisions. The home Shama live in has 2 steps that he must navigate to enter. They have a makeshift ramp used when Gabbi's mother visits but need a safer, more stable ramp for Ephraim to enter his home. CURRENT FUNCTIONAL STATUS:: Dandy was sitting up in bed visiting with his when CM met with them. They were both angry and accusatory at the start of the converstaion but became calmer as questions were asked and answered and information was shared. They talked about how difficult the last 2 weeks have been. 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 He is in a lot of pain and the plan and prognosis is not clear. Dandy has received radiation therapy and will meet with Oncology at [facility] on 11/27/2019 to discuss chemotherapy and other treatment options. They are admittedly frightened and unsure of the future. Dandy is anxious and gets agitated at times and Gabbi seems to vacillate between tears and anger. They expressed concern about not having seen a doctor in 2 days but CM explained that they had seen a doctor for his admission yesterday and that the nurse practitioner had seen him early this morning. Dandy is forgetful and at times confused, making the situation more challenging.They were also concerned that his home medications were not being given as prescribed. After several conversations between nursing, pharmcy and the provider, the medication reconciliation was to their satisfaction. They currently are receiving no services at home and acknowledged they have no idea what is available or where to start. CM discussed home health and other services and will coordinate post discharge services with them. ADVANCE DIRECTIVES:: none on file Has patient been provided with information about the portal?: No Did the patient sign up for the portal?: No CODE STATUS:: DNR/DNI INSURANCE COVERAGE / FINANCIAL ISSUES:: Medicare. BC BS CURRENT HOME/COMMUNITY SERVICES/EQUIPMENT:: Dandy has a community nutrition educator bench, rollator, walker and over bed table.Not currently receiving any services in the community. PRIMARY CARE PHYSICIAN:: Ghazala Magaña POTENTIAL DISCHARGE NEEDS:: Follow up with Oncologist, PCP and discharge plan of care PATIENT/FAMILY EDUCATION NEEDS:: Discharge plan, limitations, follow up plan, Ask Me Three. ANTICIPATED BARRIERS TO DISCHARGE:: pain control TRANSPORTATION:: via private vehicle with PLAN:: Dandy will likely return home with new home health services. He will have a palliative consult with Dr. Choudhury. This was attempted in the ED but could not be completed due to Dandy's extreme agitation at that time. He will follow up with his Oncologist and other providers at [facility] as well as his PCP. CM will continue to support patient, family and discharge planning needs.
[2019-11-18 08:25] VITALS: BP 134/94; PULSE 75; RESP 18; TEMP 36.8; O2SAT 95
[2019-11-18] MEDS: Gabapentin 400 MG CAP 1200 MG PO ×3 (08:59→19:47)
[2019-11-18] MEDS: Haloperidol 1 MG TAB PO ×2 (08:59→14:08)
[2019-11-18] MEDS: Docusate Sodium 100 MG CAP PO ×3 (08:59→19:47)
[2019-11-18] MEDS: Dexamethasone 4 MG TAB PO ×2 (08:59→19:47)
[2019-11-18] MEDS: Polyethylene Glycol 3350 17 GM PACKET PO (08:59)
[2019-11-18] MEDS: Famotidine 20 MG TAB PO (08:59)
--- NOTE | 2019-11-18 12:13 | W.PM.PROGNOT ---
Date of Service Date of service: 11/18/19 Time of Service: 12:14 Assessment and Plan Assessment and plan (1) Lung cancer: Start date: 11/18/19 Start time: 12:19 Status: Chronic Assessment and plan: Primary lung ca with mets to bone, uncontrollable pain at home. Pain improving. Palliative care has seen patient. He is currently on fentanyl patch, po morphine, decadron 4 mg BID, gabapentin 1200 TID, Haldol prn agitation and MS contin. Will monitor pain status through day. (2) Bone metastases: Start date: 11/18/19 Start time: 12:23 Status: Chronic Assessment and plan: As above (3) Cachexia: Start date: 11/18/19 Start time: 12:24 Status: Chronic Assessment and plan: From cancer encourage nutrition. (4) History of renal carcinoma: Start date: 11/18/19 Start time: 12:24 Status: Chronic Assessment and plan: Bladder cancer with renal carcinoma in remission until recently. New onset Large cell lung ca. see above (5) Neurogenic bladder: Start date: 11/18/19 Start time: 12:24 Status: Acute Assessment and plan: From bladder cancer in the past. Has a stoma and requires self cath. Will continue self cath while in hospital. (6) Hyperlipidemia: Start date: 11/18/19 Start time: 12:24 Status: Chronic Assessment and plan: On statin. Continue Above case discussed with Dr. Agudelo who is in agreement. Subjective Subjective Patient reports: feels better and still having pain Interval history since last seen: Pain is better controlled. Still having pain but appears less agitated. Slept all night. Exam Narrative Exam Narrative: Const: Sitting up in bed, self cathing, calm and cooperative. Ill appearing, nontoxic cachectic Eyes:PERRLA Neck: no lyphedema Resp: LSC, no wheezing, rales, rhonchi, resp even and unlabored. Cardio: RRR no murmurs, gallops appreciated. GI: Abd soft nontender, bs x 4 Objective Objective Clinical Data: Abnormal lab results 11/17/19 11/17/19 Range/Units 11:30 11:30 WBC 21.37 H (4.4-10.8) k/cumm Hgb 13.1 L (13.5-17.5) g/dL RDW 14.6 H (11.8-14.1) % Absolute Neutrophils 18.51 H (1.2-6.7) k/cumm Absolute Lymphocytes 0.71 L (1.2-3.4) k/cumm Absolute Monocytes 1.99 H (0.11-0.7) k/cumm BUN 26 H (7-18) mg/dL Glucose 114 H (74-106) mg/dL Alkaline Phosphatase 198 H (46-116) U/L Total Protein 6.3 L (6.4-8.2) g/dL Albumin 2.3 L (3.4-5.0) g/dL Vital Signs Temperature 36.8 C 11/18/19 08:25 Temperature Source Tympanic 11/18/19 08:25 Pulse 75 11/18/19 08:25 Pulse Rhythm Regular 11/18/19 09:00 Pulse 89 11/17/19 17:10 Respiratory Rate 18 11/18/19 08:25 Respiratory Effort Non-Labored 11/18/19 09:00 Respiratory Depth Normal 11/18/19 09:00 Respiratory Pattern Normal 11/18/19 09:00 Blood Pressure 134/94 H 11/18/19 08:25 Blood Pressure Mean 27 11/17/19 16:35 Blood Pressure Position Sitting 11/17/19 11:24 Pulse Oximetry 95 11/18/19 08:25 Oxygen Delivery Method Room Air 11/18/19 08:25 Oxygen Flow Rate 0 11/18/19 08:25 Pain Level 5 11/18/19 09:20 Intake & Output 11/17/19 11/18/19 11/18/19 23:59 11:59 23:59 Output Total 600 / 600 Balance -600 / -600 Weight 52.8 kg Output: Urine 600 / 600 Other: Urine Color Yellow Urine Appearance Cloudy Cloudy Urine Odor Strong Voiding Methods Ileal Conduit (Right) Laboratory Results WBC 21.37 k/cumm (4.4-10.8) H 11/17/19 11:30 RBC 4.64 m/cumm (4.50-6.00) 11/17/19 11:30 Hgb 13.1 g/dL (13.5-17.5) L 11/17/19 11:30 Hct 40.9 % (40.0-50.0) 11/17/19 11:30 MCV 88.1 fL (80-95) 11/17/19 11:30 MCH 28.2 pg (27.0-33.0) 11/17/19 11:30 MCHC 32.0 g/dL (32.0-36.0) 11/17/19 11:30 RDW 14.6 % (11.8-14.1) H 11/17/19 11:30 Plt Count 270 x1000/uL (130-400) D 11/17/19 11:30 MPV 10.3 fL (8.0-11.0) 11/17/19 11:30 Immature Gran % 0.5 % 11/17/19 11:30 Neutrophils % 86.6 11/17/19 11:30 Lymphocytes % 3.3 11/17/19 11:30 Monocytes % 9.3 11/17/19 11:30 Eosinophils % 0.3 11/17/19 11:30 Basophils % 0.0 11/17/19 11:30 Absolute Neutrophils 18.51 k/cumm (1.2-6.7) H 11/17/19 11:30 Absolute Lymphocytes 0.71 k/cumm (1.2-3.4) L 11/17/19 11:30 Absolute Monocytes 1.99 k/cumm (0.11-0.7) H 11/17/19 11:30 Absolute Eosinophils 0.06 k/cumm (0.0-0.7) 11/17/19 11:30 Absolute Basophils 0.00 k/cumm (0.0-0.2) 11/17/19 11:30 Differential Comment Agrees w/ instrument 11/17/19 11:30 RBC Morphology See below 11/17/19 11:30 Polychromasia Present 11/17/19 11:30 Poikilocytosis 1+ 11/17/19 11:30 Basophilic Stippling Present 11/17/19 11:30 PT 11.0 sec (9.3-11.0) 11/17/19 11:30 INR 1.1 (0.9-1.1) 11/17/19 11:30 Sodium 137 mmol/L (136-145) 11/17/19 11:30 Potassium 4.5 mmol/L (3.5-5.1) 11/17/19 11:30 Chloride 99 mmol/L (98-107) 11/17/19 11:30 Carbon Dioxide 29.7 mmol/L (21.0-32.0) 11/17/19 11:30 Anion Gap 8.3 mmol/L (3-11) 11/17/19 11:30 BUN 26 mg/dL (7-18) H 11/17/19 11:30 Creatinine 1.03 mg/dL (0.70-1.30) 11/17/19 11:30 Estimated GFR/1.73 m2 >= 60.00 (mL/min/1.73m2) 11/17/19 11:30 Glucose 114 mg/dL (74-106) H 11/17/19 11:30 Calcium 9.2 mg/dL (8.5-10.1) 11/17/19 11:30 Magnesium 1.8 mg/dL (1.8-2.4) 11/17/19 11:30 Total Bilirubin 0.7 mg/dL (0.2-1.0) 11/17/19 11:30 AST 20 U/L (15-37) 11/17/19 11:30 ALT 32 U/L (16-63) 11/17/19 11:30 Alkaline Phosphatase 198 U/L (46-116) H 11/17/19 11:30 Total Protein 6.3 g/dL (6.4-8.2) L 11/17/19 11:30 Albumin 2.3 g/dL (3.4-5.0) L 11/17/19 11:30 Urine Color Cancelled 11/17/19 12:04 Urine Clarity Cancelled 11/17/19 12:04 Urine pH Cancelled 11/17/19 12:04 Ur Specific [place] Cancelled 11/17/19 12:04 Urine Protein Cancelled 11/17/19 12:04 Urine Ketones Cancelled 11/17/19 12:04 Urine Blood Cancelled 11/17/19 12:04 Urine Nitrite Cancelled 11/17/19 12:04 Urine Bilirubin Cancelled 11/17/19 12:04 Urine Urobilinogen Cancelled 11/17/19 12:04 Ur Leukocyte Esterase Cancelled 11/17/19 12:04 Urine Glucose Cancelled 11/17/19 12:04
[2019-11-18] MEDS: Clopidogrel 75 MG TAB PO (14:08)
[2019-11-18] MEDS: Atorvastatin 40 MG TAB PO (14:16)
[2019-11-18] MEDS: Escitalopram 10 MG TAB PO (14:16)
[2019-11-18 16:25] VITALS: BP 128/85; PULSE 89; RESP 18; TEMP 37; O2SAT 92
[2019-11-18] MEDS: Sucralfate 1 GM TAB PO ×2 (16:26→22:31)
[2019-11-18 19:43] VITALS: BP 167/61; PULSE 125; RESP 18; TEMP 37.2; O2SAT 92
[2019-11-18 20:05] VITALS: BP 124/85; PULSE 97; RESP 20; TEMP 36.9; O2SAT 96
--- NOTE | 2019-11-18 20:20 | NUR.NOTE ---
Nursing Note: Around 193 this patients daughter came to the nurses station stating the patient wanted his morphine. This nurse gathered the patients medications and the morphine as requested and went in the patients room. Patient was also scheduled to receive MS Contin and haldol. This nurse attempted to go over the medications with the patient, the daughter then called the other daughter, Joel and would not let this nurse speak to the patient about his medications and stated he should never receive the haldol and then demanded to know exactly what time the doctor had decided to order the MS Contin because they were not there and the patient did not recall talking to the doctor. The daughter stated he was not to receive the MS contin and only the liquid morphine. This nurse tried to ask the patient what he would like for medications and he pointed to his daughter to determine his medications. The daughters ultimately stated they only want him to get the MS contin now and hold off on the liquid morphine.
[2019-11-18 22:58] VITALS: BP 122/82; PULSE 98; RESP 18; TEMP 36.5; O2SAT 97
[2019-11-18] MEDS: Normal Saline Flush 10 ML SYR IVP (23:01)
[2019-11-19 06:58] LABS: HCT 38.2 % (40.0-50.0); HGB 12.5 g/dL (13.5-17.5); Mean Corp. HGB Concentration 32.7 g/dL (32.0-36.0); Mean Corpuscular Hemoglobin 28.5 pg (27.0-33.0); Mean Corpuscular Volume 87.2 fL (80-95); Mean Platelet Volume 10.1 fL (8.0-11.0); Platelet Count 273 x1000/uL (130-400); RBC 4.38 m/cumm (4.50-6.00); RBC Distribution Width 14.8 % (11.8-14.1); White Blood Cell Count 16.53 k/cumm (4.4-10.8)
[2019-11-19 07:18] LABS: BUN 36 mg/dL (7-18); CREATININE 1.25 mg/dL (0.70-1.30); Calcium 8.9 mg/dL (8.5-10.1); Chloride 104 mmol/L (98-107); Estimated GFR 55.72 (mL/min/1.73m2); Glucose 120 mg/dL (74-106); Potassium 4.6 mmol/L (3.5-5.1); Sodium 141 mmol/L (136-145)
[2019-11-19 07:50] VITALS: BP 133/90; PULSE 91; RESP 17; TEMP 37.2; O2SAT 98; O2SAT 99
[2019-11-19] MEDS: Docusate Sodium 100 MG CAP PO ×3 (08:03→20:10)
[2019-11-19] MEDS: Clopidogrel 75 MG TAB PO (08:03)
[2019-11-19] MEDS: Gabapentin 400 MG CAP 1200 MG PO ×3 (08:03→20:09)
[2019-11-19] MEDS: Escitalopram 10 MG TAB PO (08:03)
[2019-11-19] MEDS: Aspirin E.C. 81 MG TABEC PO (08:04)
[2019-11-19] MEDS: Dexamethasone 4 MG TAB PO ×2 (08:04→20:10)
[2019-11-19] MEDS: Famotidine 20 MG TAB PO (08:04)
[2019-11-19] MEDS: Sucralfate 1 GM TAB PO ×3 (08:04→21:42)
[2019-11-19] MEDS: Atorvastatin 40 MG TAB PO (08:04)
[2019-11-19 08:17] VITALS: O2SAT 95
--- NOTE | 2019-11-19 10:39 | OTIE_ITS ---
Occupational Therapy Notes Inpatient Occupational Therapy Evaluation Date: 11/19/19 Referring Doctor: Ad Agudelo MD OT Orders: Urgent- Eval for assistive device Precautions: Fall, Standard, DNR/DNI PATIENT PROFILE/ADMITTING DIAGNOSIS: Pt is a 79 year old male who was admitted through the ER on 11/17/19 for lung cancer metastatic to bone. Pt was admitted for increased pain levels and agitation. Past Medical History: Refer to pts EMR Social History/Home Situation: Pts and daughter were present in the room when OT arrived. They state that pt lives at home with . Per pts he is able to shower in the walk in shower (I) with supervision from for functional mobility. He has a shower bench and grab bars. He is (I) with toileting routine and pt states that he can eat with his (L) hand but his (R) hand has decreased function due to lesion on his spine and s/p CVAx2. Pt is unable to perform his (B) LE dressing (I) due to this and he has decreased functional mobility with unsteady gait per pt's report. When swallowing pt has pain in his throat, he notes that this is from multiple rounds of chemotherapy. He is weak and unable to perform drinking of fluids in an open cup and requires a closed cup with spout. Pt is cathed at night per which this seems to work well. His sleeping routine is unsafe due to pt's pain and falling to end of bed and unable to get up. Pt is unable to lay flat due to pain. Pt denies the need for raised toilet seat as he states that he can use his walker to get up, although OT does feel that a home assessment would be better. Equipment owned/DME: Shower bench, grab bars SUBJECTIVE: Pt was lyin gin bed when OT arrived. He was agreeable to OT sess ion. Pts and daughter are clearly very upset. They want to know the plan for pt and have a lot of questions. OT did discuss this with college and career counselor and college and career counselor is aware of this. OBJECTIVE: General Observation: Pt is weak and he reports that he is agitated. He thinks that there is a river in his room. He has a montague, IV (L) UE. Mental Status: Alert to name Pain: c/o pain in (R) UE/LE ROM: RUE AROM WFL for shoulder and elbow, digits only flex actively 30* and OT is able to passively mobilize without increased pain. L UE AROM WFL STRENGTH: RUE Shoulder 2+/5, bicep 3+/5, tricep 3/5, screw down is N/A LUE Shoulder 3/5, bicep 3-/5, tricep 3/5, screw down is weak FUNCTIONAL MOBILITY/ADLS: Transfers Supine-sit Mod (A) Sit-supine Mod (A) BALANCE: Static sitting Good Dynamic Sitting Fair SPECIAL TESTS: Daily Activity Limitations Standardized Measure [facility] AM -PAC ?6 clicks? Daily Activity Inpatient Short Form: Raw score: 13 Standardized score: 32.03 CMS score: 63.03% INFORMED CONSENT/EDUCATION: Pt instructed in purpose of OT Consult and plan of care. ASSESSMENT: Patient is a 79-year-old male referred to occupational therapy services with diagnosis of lung cancer metastatic to bone. Pt was admitted for increased pain levels and agitation. Patient presents with clinical signs and symptoms consistent with dx as demonstrated by the following impairment level findings: Pain in (R) UE/LE, decreased fine and gross motor control of (R) UE, decreased functional activity tolerance, decreased functional mobility required for performance of ADLs, c/o SOB, decreased bed mobility, decreased performance of ADLs, decreased UE strength. Impairments are contributing to the following functional limitations: A significant decline in functional mobility over last week, unable to perform LE dressing, decreased functional activity tolerance, increased agitation due to pain, decreased cognitive understanding, unable to get in home due to steps without (A). AMPAC score 13 Patient is assessed as a high 83232 complexity based on the following: History: See above Examination: See functional limitations as noted above Presentation: Evolving Decision Making: AMPAC score 13 GOALS- N/A consult for adaptive equipment PLAN OF CARE/TREATMENT PLAN: OT consult only for adaptive equipment DISCHARGE RECOMMENDATIONS OT recommends the following for pt: * HH OT/PT and Nursing services when pt returns home, specifically HHOT for assessment of pts ADLs/IADLs and safety for functional activities in home setting, HHPT due to pts functional decline in mobility and safety with func tional mobility. * Hospital Bed- Due to pts inability to lay flat on the bed and increased pain levels during his sleeping routine- OT does recommend that pt has a hospital bed to decrease pain and increase his quality of life due to pain. * Cup with lid- Pt is unable to perform eating routine without use of cup with lid/spout due to decline of (B) UE ROM and ROM of digits for (R) UE due to CVA/lesion on spine. TREATMENT TIME/MINUTES/CODES 24632, 40 minutes (09:55) Breanna Luna OTR/[facility]
--- NOTE | 2019-11-19 15:19 | CHAPLAIN ---
Dandy does not want any self pay representative visits.
[2019-11-19 15:35] VITALS: BP 112/85; PULSE 54; RESP 18; TEMP 37.5; O2SAT 93
--- NOTE | 2019-11-19 16:15 | PT.INIE ---
Date of service: 11/19/19 Time of Service: 14:13 PT Notes Visit Reasons: PAIN CONTROL, LUNG CA, METS TO BONE Physical Therapy Inpatient Initial Evaluation Date: 11/19/2019 Referring Doctor: Sammie Myers NP PT Orders: PT CONSULT: Limited Ability Precautions: Fall. Standard. Activity as tolerated. Patient Profile/Admitting Diagnosis: Pt is a 79-year-old male that presented to the ER on 11/17/2019 for worsening pain from known right neck mass. 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 PMHX: Metastatic Lung Cancer History of partial nephrectomy Agitation Paranoia History of CVA with residual effects Neuropathic pain Palliative care patient History of bladder cancer Cachexia History of renal carcinoma Neurogenic bladder Hyperlipidemia Social History/Home Situation: Pt lives at home with his , Gabbi, in [place]. Reports that there is one step onto a platform and one more step into the house. He notes that he is able to go up the stairs using his walker with his behind him. reports that the pt?s brother and [id number] live across the street and are able to help out when she is not able to be in the home. She says they have made an agreement that he will not leave the bed while she is out for her daily walk. Once in the home he is not required to negotiate stairs as he is able to stay in the bedroom downstairs with a nearby bathroom. He does not have a hospital bed at this time. also notes that the patient is able to shower and feed himself independently, however, requires assistance with dressing. Prior to hospitalization the pt did not require oxygen. Equipment Owned/DME: rollator and two-wheeled walker. Shower chair with suctioned UE support for assistance. Subjective: Pt reports that he has a history of two strokes that have causes his right leg to become weaker than the left and does not allow him to open or close his right hand. Pt?s daughter, Adrianne, notes that he was not using a walker to ambulate as of last April and now requires the assistance. She also notes that as of two months ago he has been bed bound due to significant right shoulder pain and has lost a lot of muscle mass. The pt previously saw a PT in [place] for his shoulder pain and was prescribed a TENS unit which seems to help his pain, as well as a hot pack. Pt?s daughter notes that since he has finished his radiation treatment he has developed a productive cough and has a difficult time lying on his back with a cough and breathing. Objective: General Observation: O2 via nasal cannula. IV line not attached to pump in RUE. Productive cough. Mental Status: alert and oriented. Pain: 2/10 at rest. 7/10 following strength testing. ROM: Right Upper Extremity: Shoulder Flexion WFL. Shoulder abduction WFL. Elbow flexion WFL. Wrist flexion WFL. No volitional opening and closing of hand. Left Upper Extremity: Shoulder Flexion WFL. Shoulder abduction WFL. Elbow flexion WFL. Wrist flexion WFL. Opening and closing of hand WFL. Right Lower Extremity: Hip flexion WFL. Hip abduction WFL. Knee flexion WFL. Ankle dorsiflexion WFL. Ankle plantarflexion WFL. Left Lower Extremity: Hip flexion WFL. Hip abduction WFL. Knee flexion WFL. Ankle dorsiflexion WFL. Ankle plantarflexion WFL. Strength: Right Upper Extremity: Shoulder flexors 4+/5. Shoulder abductors 4+/5. Elbow flexors 5/5. Elbow extensors 5/5. Little volitional movement of finger flexors and extensors. Left Upper Extremity: Shoulder flexors 4+/5. Shoulder abductors 4+/5. Elbow flexors 5/5. Elbow extensors 5/5. Weak solar site assessment specialist strength, but functional. Right Lower Extremity: Hip flexors 5/5. Hip abductors 5/5. Knee flexors 5/5. Knee extensors 5/5. Ankle dorsiflexors 5/5. Ankle plantarflexors 5/5. Left Lower Extremity: Hip flexors 5/5. Hip abductors 5/5. Knee flexors 5/5. Knee extensors 5/5. Ankle dorsiflexors 5/5. Ankle plantarflexors 5/5. Sensation: Intact as to pain and pressure on bilateral lower extremities. Bed Mobility/Transfers: Rolling left Min A; unable to solar site assessment specialist with RUE Supine to sit Mod A Sit to supine SBA Sit to stand NT Stand to sit NT Bed to chair NT Chair to bed NT Gait: Not tested at the time of initial evaluation as the pt was fatigued following muscle testing while sitting on the edge of the bed. Balance: Static Sitting: Good Dynamic Sitting: Fair Static Standing: Poor Dynamic Standing: Poor Special Tests: Mobility Limitations Standardized Measure [facility] AM-PAC 6 clicks Basic Mobility Inpatient Short Form: Raw Score: 17 CMS Score: 50% deficit Informed Consent/Education: Patient instructed in purpose of PT consult and plan of care. Assessment: Pt is a 79-year-old male that presented to the ER on 11/17/2019 for worsening pain from known right neck mass. 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 Pt presents to physical therapy with impairment level findings as listed below. He also presents with a productive cough and impaired respiratory function making it difficult for him to lie flat in bed. He would benefit from a hospital bed. He would continue to benefit from skilled physical therapy at this time. Patient presents with clinical signs and symptoms consistent with current/admitting diagnoses that have resulted to mobility limitations, gait instability, generalized weakness, and impairment of motor control as demonstrated by the following impairment level findings: 1. Decreased strength to B LE and UE major muscle groups 2. Impaired function of the R hand 3. Impaired sitting/standing balance 4. Impaired activity tolerance 5. Impaired muscular endurance 6. Impaired cardiopulmonary function Impairments are contributing to the following functional limitations: 1. Dependent bed mobility skills 2. Increased dependence with transfers 3. Inability to safely ambulate without assistive device and physical assistance 4. Increase completion time for mobility ADL performance 5. Increased fall risk 6. Inability to negotiate steps alone safely Patient is assessed as a 83919 moderate complexity based on the following: History: Pt is a 79-year-old male that presented to the ER on 11/17/2019 for worsening pain from known right neck mass. 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 AM-PAC score of 17 with 50% deficit. Examination: Demonstrable impairment in strength, balance, and range of motion with underlying impairments and functional limitations as documented above Presentation: Evolving Decision Makin moderate complexity Goals: Goals X1 week 1. Supine-Sit Min A 2. Sit-Supine independent 3. Sit-Stand Min A 4. Stand-Sit independent 5. Bed-Chair Min A 6. Chair-Bed Min A 7. Independent gait on level surface with use of least restrictive device for at least 50 feet without report of pain nor dyspnea 8. Independent stair negotiation while holding onto bilateral rails for at least 4 steps without report of pain nor dyspnea 9. Independent with home exercise program 10. Good static and dynamic standing balance/tolerance Plan of Care/Treatment Plan: 1-2x/day, 7 days/week x 1 week. Plan of care has been reviewed with the GAUGE MACHINE OPERATOR providing the service under Physical Therapy direction. Initiate Physical Therapy intervention for strengthening, bed mobility, transfers, gait, stairs, balance training, use of assistive device. DISCHARGE RECOMMENDATIONS: Pt is to be discharged to home with for 16/05 care once medically cleared. He would benefit from home health physical therapy as well as occupational therapy for improved mobility and function in the home. Recommend that the pt would benefit from a hospital bed in the home to assist with bed mobility and respiratory function with lying down. He would also benefit from transport wheelchair for mobility outside of the home due to decreased muscular endurance. TREATMENT CODE/TIME: 97764 x32 minutes beginning at 14:13 P.M. Thank you very much for this referral. Carl Ortiz, RUBEN Doctor of Physical Therapy Student [facility] Supervision provided by: Lucero Berman PT, DPT, CLT [facility] [place], [place]
--- NOTE | 2019-11-19 16:19 | PGE_ITS ---
Date of Service Date of service: 11/19/19 Time of Service: 11:15 Assessment and Plan Assessment and plan (1) Metastatic cancer to spine: Status: Chronic Assessment and plan: Primary lung ca with mets to bone, uncontrollable pain at home. Pain improving on current regimen. Palliative care has seen patient, we have ordered hospice consult. He is currently on fentanyl patch, po morphine, decadron 4 mg BID, gabapentin 1200 TID, and MS contin. Will continue to monitor pain status and adjust as needed. (2) Palliative care patient: Status: Acute Assessment and plan: discussed with who would like to explore hospice resources also. consult placed. (3) Agitation: Status: Acute Assessment and plan: improved at this time. requests haldol be discontinued, she would like to be called and will come in if we have behavioral issues/delirium episode. (4) Hyperlipidemia: Status: Chronic Assessment and plan: continue statin (5) Discharge planning issues: Status: Acute Assessment and plan: plan to return home with services. case management following. will need hospital bed and oxygen for comfort at discharge. Subjective Subjective Patient reports: feels better and pain is less Interval history since last seen: patient with less confusion and improved pain. eating and drinking some. some shortness of breath with activity but recovers with rest. Exam Const General: in distress mild, disheveled, frail appearing and ill appearing (older than stated age) chronically Nutritional Appearance: cachectic Orientation: alert, awake, oriented to person, oriented to place and confused Limitations: behavioral limitations (at times) HENMT Head: normocephalic and atraumatic Mouth: moist mucous membranes abnormal (dry) Resp Effort & Inspection: respiratory distress (mild with activity) Cardio Rate: bradycardic GI Inspection: normal to inspection Palpation: soft Auscultation: normal bowel sounds Skin General skin exam: ecchymosis Neuro General: alert, awake and oriented Patient Orientation: Person, Place and Confused (at times, poor historian) Extrem General: normal to inspection, full ROM and no pedal edema Objective Objective Clinical Data: Abnormal lab results 11/19/19 11/19/19 Range/Units 06:20 06:20 WBC 16.53 H (4.4-10.8) k/cumm RBC 4.38 L (4.50-6.00) m/cumm Hgb 12.5 L (13.5-17.5) g/dL Hct 38.2 L (40.0-50.0) % RDW 14.8 H (11.8-14.1) % BUN 36 H D (7-18) mg/dL Glucose 120 H (74-106) mg/dL Vital Signs Temperature 37.5 C 11/19/19 15:35 Temperature Source Tympanic 11/19/19 15:35 Pulse 54 L 11/19/19 15:35 Pulse Rhythm Regular 11/19/19 15:00 Pulse 89 11/17/19 17:10 Respiratory Rate 18 11/19/19 15:35 Respiratory Effort Pursed Lip 11/19/19 15:00 Respiratory Depth Deep 11/19/19 15:00 Respiratory Pattern Normal 11/18/19 15:10 Blood Pressure 112/85 11/19/19 15:35 Blood Pressure Mean 27 11/17/19 16:35 Blood Pressure Position Sitting 11/17/19 11:24 Pulse Oximetry 93 L 11/19/19 15:35 Oxygen Delivery Method Nasal Cannula 11/19/19 15:35 Oxygen Flow Rate 1 11/19/19 15:35 Pain Level 6 11/19/19 15:35 Intake & Output 11/18/19 11/19/19 11/19/19 23:59 11:59 23:59 Intake Total 130 / 370 690 / 690 Output Total 400 / 1200 400 / 920 520 / 920 Balance -270 / -830 290 / -230 -520 / -230 Intake: IV 10 Oral 120 / 360 690 / 690 Output: Urine 400 / 1200 400 / 920 520 / 920 Other: Urine Color Yellow Yellow Yellow Urine Appearance Cloudy Cloudy Clear Comment pt cath via ileal conduit Stool Size Moderate Stool Characteristics Formed Voiding Methods Toilet Laboratory Results WBC 16.53 k/cumm (4.4-10.8) H 11/19/19 06:20 RBC 4.38 m/cumm (4.50-6.00) L 11/19/19 06:20 Hgb 12.5 g/dL (13.5-17.5) L 11/19/19 06:20 Hct 38.2 % (40.0-50.0) L 11/19/19 06:20 MCV 87.2 fL (80-95) 11/19/19 06:20 MCH 28.5 pg (27.0-33.0) 11/19/19 06:20 MCHC 32.7 g/dL (32.0-36.0) 11/19/19 06:20 RDW 14.8 % (11.8-14.1) H 11/19/19 06:20 Plt Count 273 x1000/uL (130-400) 11/19/19 06:20 MPV 10.1 fL (8.0-11.0) 11/19/19 06:20 Immature Gran % 0.5 % 11/17/19 11:30 Neutrophils % 86.6 11/17/19 11:30 Lymphocytes % 3.3 11/17/19 11:30 Monocytes % 9.3 11/17/19 11:30 Eosinophils % 0.3 11/17/19 11:30 Basophils % 0.0 11/17/19 11:30 Absolute Neutrophils 18.51 k/cumm (1.2-6.7) H 11/17/19 11:30 Absolute Lymphocytes 0.71 k/cumm (1.2-3.4) L 11/17/19 11:30 Absolute Monocytes 1.99 k/cumm (0.11-0.7) H 11/17/19 11:30 Absolute Eosinophils 0.06 k/cumm (0.0-0.7) 11/17/19 11:30 Absolute Basophils 0.00 k/cumm (0.0-0.2) 11/17/19 11:30 Differential Comment Agrees w/ instrument 11/17/19 11:30 RBC Morphology See below 11/17/19 11:30 Polychromasia Present 11/17/19 11:30 Poikilocytosis 1+ 11/17/19 11:30 Basophilic Stippling Present 11/17/19 11:30 PT 11.0 sec (9.3-11.0) 11/17/19 11:30 INR 1.1 (0.9-1.1) 11/17/19 11:30 Sodium 141 mmol/L (136-145) 11/19/19 06:20 Potassium 4.6 mmol/L (3.5-5.1) 11/19/19 06:20 Chloride 104 mmol/L (98-107) 11/19/19 06:20 Carbon Dioxide 30.0 mmol/L (21.0-32.0) 11/19/19 06:20 Anion Gap 7.0 mmol/L (3-11) 11/19/19 06:20 BUN 36 mg/dL (7-18) H D 11/19/19 06:20 Creatinine 1.25 mg/dL (0.70-1.30) 11/19/19 06:20 Estimated GFR/1.73 m2 55.72 (mL/min/1.73m2) 11/19/19 06:20 Glucose 120 mg/dL (74-106) H 11/19/19 06:20 Calcium 8.9 mg/dL (8.5-10.1) 11/19/19 06:20 Magnesium 1.8 mg/dL (1.8-2.4) 11/17/19 11:30 Total Bilirubin 0.7 mg/dL (0.2-1.0) 11/17/19 11:30 AST 20 U/L (15-37) 11/17/19 11:30 ALT 32 U/L (16-63) 11/17/19 11:30 Alkaline Phosphatase 198 U/L (46-116) H 11/17/19 11:30 Total Protein 6.3 g/dL (6.4-8.2) L 11/17/19 11:30 Albumin 2.3 g/dL (3.4-5.0) L 11/17/19 11:30 Urine Color Cancelled 11/17/19 12:04 Urine Clarity Cancelled 11/17/19 12:04 Urine pH Cancelled 11/17/19 12:04 Ur Specific [place] Cancelled 11/17/19 12:04 Urine Protein Cancelled 11/17/19 12:04 Urine Ketones Cancelled 11/17/19 12:04 Urine Blood Cancelled 11/17/19 12:04 Urine Nitrite Cancelled 11/17/19 12:04 Urine Bilirubin Cancelled 11/17/19 12:04 Urine Urobilinogen Cancelled 11/17/19 12:04 Ur Leukocyte Esterase Cancelled 11/17/19 12:04 Urine Glucose Cancelled 11/17/19 12:04
--- NOTE | 2019-11-19 16:22 | CMPROGNOTE_ITS ---
- If Service Date Differs Date of service: 11/19/19 Time of Service: 16:22 Care Management Progress Note S/O: Dandy was sitting up in bed when CM met with him. He, Gabbi and his daughter were asking questions about services available at home. CM inquired if they would like to speak to the home health/hospice nurse for more information. They agreed and CM coordinated a visit from Sharlene Llamas, HH/wildlife photographer. After discussion, per Sharlene, they determined that at this time they would like for Dandy to go home with new RN, OT, PT and ESL INSTRUCTOR. Hospice may be considered in the future. They also requested a hospital bed and CM completed the referral to [facility]. Dandy seems more comfortable and less anxious today and has only received one prn dose of morphine in addition to his regularly scheduled pain medicine. A: Dandy is a 79 year old man admitted on 11/16/19 for pain control A: Dandy will return home with new services including RN, OT,PT and ESL INSTRUCTOR. A hospital bed has been ordered through [facility] by CM. Dandy will follow up with [facility] On[facility] as well as his PCP and discharge plan of care. CM will continue to support patient, family and discharge planning needs.
--- NOTE | 2019-11-19 16:43 | PHARADMIT ---
Admission Pharmacy Clinical Review Pain control, lung CA, mets to bone Code Status DNR/DNI Current Weight 52.8 kg Renally Cleared and Narrow Therapeutic Index Meds Crcl ~33 mL/min gabapentin- recommended max of 900 mg/day in 3 divided doses QTc Value / Action Taken n/a BP Control, Fever BP 112/85 afebrile Electrolytes reviewed within normal limits DVT Prophylaxis none Opiate Usage / Scheduled Bowel Regimen Ordered BID and PRN/ TID docusate Plt/SCr for Heparin / Enoxaparin plt 273 SCr 1.25 INR for Warfarin n/a H/H stable, WBC/Bands h/h 12.5/38.2 wbc 16.53 Antibiotic appropriateness none Cultures and Sensitivities none Surgical ABX d/c within 24 hr n/a DM control / Insulin Dosing BG 120 Heart Failure (Check EF%) (CARMEN's, B-Block, Diuretics) none IV to PO Switch n/a Home Meds Reviewed -multiple ELECTRO PLATER depressants: oxycodone, gabapentin, morphine -morphine may diminish the antiplatelet effect of morphine Home Meds Not Ordered glucosamine, oxycodone Comments aware of recommended gabapentin dosing, wants to continue current dose
[2019-11-19 23:51] VITALS: BP 136/83; PULSE 88; RESP 22; TEMP 36.9; O2SAT 94
[2019-11-20 07:26] VITALS: BP 128/84; PULSE 66; RESP 18; TEMP 36.4; O2SAT 88
[2019-11-20] MEDS: Gabapentin 400 MG CAP 1200 MG PO ×3 (08:22→20:52)
[2019-11-20] MEDS: Escitalopram 10 MG TAB PO (08:22)
[2019-11-20] MEDS: Dexamethasone 4 MG TAB PO ×2 (08:22→20:52)
[2019-11-20] MEDS: Famotidine 20 MG TAB PO (08:22)
[2019-11-20] MEDS: Docusate Sodium 100 MG CAP PO ×2 (08:22→20:51)
[2019-11-20] MEDS: Sucralfate 1 GM TAB PO (08:22)
[2019-11-20] MEDS: Atorvastatin 40 MG TAB PO (08:22)
[2019-11-20] MEDS: Aspirin E.C. 81 MG TABEC PO (08:23)
[2019-11-20] MEDS: Clopidogrel 75 MG TAB PO (08:23)
--- NOTE | 2019-11-20 10:43 | PT.INNT ---
Date of service: 11/20/19 Time of Service: 10:43 PT Notes Visit Reasons: PAIN CONTROL, LUNG CA, METS TO BONE 11/20/19 Hold per nursing request. Kate Morgan, STEEL FABRICATING SUPERVISOR
[2019-11-20 11:40] VITALS: BP 120/79; PULSE 42; RESP 16; TEMP 36.7; O2SAT 92
[2019-11-20 12:28] VITALS: O2SAT 85
[2019-11-20 12:29] VITALS: O2SAT 92
--- NOTE | 2019-11-20 14:42 | DSE_ITS ---
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 (2) Palliative care patient: Status: Acute (3) Agitation: Status: Resolved (4) Hyperlipidemia: Status: Chronic Discharge Plan Disposition Patient Disposition: HOME W/HOME HEALTH SERVICE Condition: Serious Discharge Details Chief Complaint: GenMedical Clinical Impression: Lung cancer metastatic to bone Reason For Visit: PAIN CONTROL, LUNG CA, METS TO BONE Admit Date/Time: 11/19/19 16:16 Admit Provider: Ad Agudelo Attending Provider: Ad Agudelo Primary Care Provider: Ghazala Clements ED Provider: Sammy Crespo Hospital Course Hospital Course: This is a 79 y.o male recently diagnosed with bone mets at [facility]. 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 Imaging in the ED reveals Metastatic disease to the lower cervical spine with a right upper lobe mass suggesting a primary malignancy. Possible right vocal cord mass. He was recently weaned from morphine 30 mg BID to 15 mg 1 day ago for oversedation. Palliative consult was placed by the ED. Mr. Ro was agitated when evaluating, pulling at lines and not paying attention to questions. was able to answer questions. PMH included renal carcinoma, bladder cancer with neobladder and stoma which he self caths through stoma, HLD. He is being admitted for pain management. Labs in ED with elevated WBC at 21.37 however recently on dexamethasone for bone pain with 10 rounds radiation, alk phosphate elevated; otherwise unremarkable. No cough, fever. Dr. Choudhury with patient at this time to discuss goals of care. he was admitted for pain management. He was placed on Fentanyl patch in addition to his MS contin and using morphine oral solution for breakthrough pain. his dexamethasone was increased from 2 mg to 4 mg bid. He did receive haldol in ED for agitation will have lorazepam IV for agitation prn but has not required any additional dosing after the first night and it was discontinued at the 's request. case management and palliative care have been following closely and discharge plans for home with services have been arranged. 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 we are discontinue oxycodone and ms jessika. He will continue to follow with palliative care outpatient. spent greater than 35 minutes on discharge Home Meds and New Rx's Prescriptions: New acetaminophen [Tylenol] 325 mg Tablet 650 mg PO Q4H PRN PRNQty: 0 RF: 0 gabapentin [Neurontin] 400 mg Capsule 1,200 mg PO TID Qty: 120 RF: 0 dexamethasone 4 mg Tablet 4 mg PO BID Qty: 60 RF: 0 docusate sodium [Colace] 100 mg Capsule 100 mg PO TID Qty: 0 RF: 0 fentanyl 12 mcg/hr patch 72 hour 1 patch TD Q72H Qty: 5 RF: 0 morphine 10 mg/5 mL Solution 2.5 mg PO Q2H PRN PRNQty: 30 RF: 0 Continued escitalopram oxalate 10 mg Tablet 10 mg PO DAILY RF: 0 melatonin 5 mg Tablet 10 mg PO DAILY PRNRF: 0 sucralfate 1 gram Tablet 1 g PO QID RF: 0 Discontinued dexamethasone 2 mg Tablet 2 mg PO BID RF: 0 gabapentin 300 mg Capsule 300 mg PO TID RF: 0 morphine 15 mg Tablet Extended Release 15 mg PO BID RF: 0 oxycodone 5 mg Tablet 5 - 10 mg PO .Q4-6 HOURS RF: 0 atorvastatin 40 mg Tablet 40 mg PO DAILY RF: 0 glucosamine sulfate 500 mg Tablet 1,500 mg PO DAILY PRNRF: 0 aspirin [Aspirin Low Dose] 81 mg Tablet,Delayed Release (Dr/Ec) 81 mg PO DAILY RF: 0 clopidogrel 75 mg Tablet 75 mg PO DAILY RF: 0 No Action fentanyl [Duragesic] 25 mcg/hr patch 72 hour 25 mcg transdermal Q72H MDD 37 mcg Qty: 5 RF: 0 Discharge Instructions Stand Alone Forms: Nursing Discharge Form Referrals: Ghazala Clements [Primary Care Provider] - 11/29/19 (HOME VISIT BETWEEN 3:00-4:30) Activity:: Activity as Tolerated Equipment/Supplies:: hospital bed with gel overlay Diet:: As Tolerated Discharge Orders Discharge Orders: Discharge Order (Routine); Ordered 11/21/19 Ordered By: Sammie Myers Discharge Data Discharge Date/Time-TO BE ENTERED AT DEPARTURE: 11/21/19 10:55 DS: Summary Status at Discharge Functional status at discharge: wheelchair bound Overall status at discharge: patient is not back to baseline Mental Status: mental status grossly normal Speech and Movement: speech and movement normal Mood: congruent mood Affect: normal affect Exam Const General: disheveled, frail appearing and ill appearing (frail elderly male) chronically Nutritional Appearance: cachectic Orientation: alert, awake and oriented x3 HENMT Head: normal to inspection, normocephalic and atraumatic Mouth: oral mucosae normal Resp Effort & Inspection: normal respiratory effort Auscultation: clear to auscultation bilaterally Cardio Rate: regular rate Rhythm: regular rhythm GI Inspection: normal to inspection Palpation: soft Auscultation: normal bowel sounds Skin General skin exam: no rashes or lesions noted Neuro General: alert, awake and oriented Patient Orientation: Person Psych Mental Status: mental status grossly normal Speech and Movement: speech and movement normal Mood: congruent mood Affect: normal affect DS: Data Vitals/I&O Vitals and I&O: Vital Signs Temperature 36.7 C 11/20/19 11:40 Temperature Source Tympanic 11/20/19 11:40 Pulse 42 L 11/20/19 11:40 Pulse Rhythm Regular 11/20/19 08:30 Pulse 89 11/17/19 17:10 Respiratory Rate 16 11/20/19 11:40 Respiratory Effort 11/20/19 08:30 Respiratory Depth Shallow 11/20/19 08:30 Respiratory Pattern Normal 11/20/19 08:30 Blood Pressure 120/79 11/20/19 11:40 Blood Pressure Mean 27 11/17/19 16:35 Blood Pressure Position Sitting 11/17/19 11:24 Pulse Oximetry 92 L 11/20/19 12:29 Oxygen Delivery Method Nasal Cannula 11/20/19 12:29 Oxygen Flow Rate 1 11/20/19 12:29 Pain Level 0 11/20/19 11:40 Comment 11/20/19 07:26 Intake & Output 11/19/19 11/20/19 11/20/19 23:59 11:59 23:59 Intake Total 240 / 930 400 / 400 Output Total 920 / 1320 625 / 625 Balance -680 / -390 -225 / -225 Intake: Oral 240 / 930 400 / 400 Output: Urine 920 / 1320 625 / 625 Other: Urine Color Light Saloni Straw Urine Appearance Clear Clear Comment gauze dressing placed to cover stoma Stool Size Small Stool Characteristics Soft Liquid Brown PFSH Medical History (Updated 11/20/19 @ 20:57 by Hilda Choudhury MD) Agitation (Resolved) Cancer related pain (Chronic) CVA (cerebrovascular accident) (Chronic) Goals of care, counseling/discussion (Chronic) History of bladder cancer (Acute) History of stroke with residual effects (Chronic) left hand clumsy; right-sided stroke Hypoxia (Chronic) Metastases to the liver (Acute) Metastatic cancer to spine (Chronic) Neuropathic pain (Acute) Palliative care patient (Acute) Paranoia (Resolved) 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 Mother , Holocaust survivor; lived until her 80s No problems noted. Father , Holocaust survivor lived until his 80s No problems noted. Daughter Chronic mental illness Daughter No problems noted. 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 Daughters are from first marriage. Son adopted as a teen. Brother Jos lives across the street. His is Gabbi's best friend. Dandy quit smoking 5 yrs ago. Gabbi needing help in the home. Wants , maybe hospice. Pain uncontrolled since diagnosis.
--- NOTE | 2019-11-20 14:58 | PDOC.HHF2F ---
Home Health Certification Home Health Certification: 1. Encounter Date and Reason I certify that CARLOS BOWDEN was seen by Sammie Myers on 11/20/19 and that I had a [id number] encounter with this patient that meets the physician face to face encounter requirements. 2. Clinical Findings Supporting Skilled Need and Homebound Status I certify that home health services are medically necessary, include either intermittent long term and/or physical/speech therapy, and that this patient is homebound in that absences from the home require considerable and taxing effort and are infrequent or of short duration, or are attributable to the need to receive medical care. [X] (a) Attached documentation from encounter provides clinical findings supporting skilled need and homebound status (including what assistance patient requires to leave the home). The encounter with the patient was in whole, or in part, for the following medical condition, which is the primary reason for home health care: PAIN CONTROL, LUNG CA, METS TO BONE Halfway: routine nursing for medication oversight, pain evaluation and management, new to oxygen. routine nursing care Physical and occupational Therapy: routine evaluation and treatment in patient with ambulatory dysfunction, r/t metastatic cancer to spine, neuropathic pain and history of old CVA with weakness. goals to restore ability to ability to ambulate safely, evaluate ability to perform ADL's and self care Homebound: patient unable to safely leave house unattended and without assistance as ambulation is severely limited d/t pain, decreased strength and endurance 3. Certification and Authentication I certify that I composed the above information based on my clinical judgement relating to this patient's medical condition and, if applicable, clinical findings communicated to me by the NPP or inpatient physician who performed the Home Health Referral. All further orders will be obtained through (Community Based Physician - PCP)
--- NOTE | 2019-11-20 15:27 | PCPN_ITS ---
Date of service: 11/20/19 Assessment and Plan Assessment and plan (1) Cancer related pain: Status: Chronic Assessment and plan: Will stop the MS contin and use the morphine concentrate sparingly for breakthrough pain. Increase his fentanyl patch to 37 mcg q 72 hrs. Continue gabapentin. Once he is stable on new dose of fentanyl, can try weaning his gabapentin down to 900 mg tid and then if possible down again to 600 mg tid. Would not go any lower than that given the degree of his spinal metastatic disease with neurological compromise. Did review his medications with Adrianne Ly RN, from the radiation oncology division at [facility]. 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 His is worried that he will be too weak to be able to transport to this appointment. She likely will be using an ambulance for Dandy's transfer home due to his weakness. We did discuss possible treatment with immunotherapy, if Dandy's cancer has the right tumor markers. Both Dandy and Gabbi are more skeptical about chemotherapy. Dandy's overall functional status is quite poor. Unsure if that will preclude him from taking treatment under the care of Dr Hudson. For now, encouraged them to try to make that appointment. (3) Goals of care, counseling/discussion: Status: Chronic Assessment and plan: Dandy was most worried about his cancer pain. Apparently, it had not been controlled, despite radiation therapy, until today. Both he and Gabbi are relieved. I explained that the [facility] care and/or the hospice team will be able to keep him comfortable in terms of his pain. Will continue to follow once he is discharged home, planned for tomorrow, 11/21. (4) Hypoxia: Status: Chronic Assessment and plan: will need ongoing oxygen supplementation at home, likely indefinitely his mind cleared substantially once he started wearing it regularly Subjective Subjective Patient reports: still having pain, pain is less and shortness of breath (with exertion) Interval history since last seen: I saw Dandy several times in his hospital room on and off throughout the afternoon. He was accompanied by his , Gabbi. I also met with her and Care Management at the end of the day. We called and talked to the [facility] Cancer Team. We shared with them that Dandy is now having sharp, stabbing pain in his right leg, similar to the pain he had prior to his radiation treatment to alleviate the pain is his right arm. The pain is presumed to be secondary to known mets in his lumbar spine. Dandy's pain is much better controlled with a combination of fentanyl 25 mcg and gabapentin 1200 mg tid. He has also been receiving morphine continuous from the hospitalist team. I advised that this was not necessary; he should be only one long-acting opioid medication and fentanyl has no toxic metabolites. We will continue the liquid morphine at a lower dose of 2.5 mg q 2hrs prn; his reported that Dandy gets too sedated when he takes the 5 mg dose he was on previously. Dandy is not paranoid today. He is pleasant and cooperative, though confused, and looking to Gabbi for guidance. Exam Const General: disheveled, frail appearing and ill appearing Nutritional Appearance: cachectic Orientation: oriented to person [facility] Head: normocephalic and atraumatic Ears: hearing grossly normal bilaterally and external ears normal General nose exam: external nose normal Face and sinus: normal facial exam and face symmetric Eyes Conjunctivae: conjunctivae normal Sclera: sclerae normal Pupils: PERRL Neck Neck: no lymphadenopathy and no JVD Resp Effort & Inspection: normal respiratory effort Cardio Rate: tachycardic Heart Sounds: S1 normal and S2 normal GI Inspection: scar and other (neobladder) Palpation: firm Skin General skin exam: dry skin and ecchymosis Nails: clubbing and discolored Neuro General: alert and awake Cognition: abnormal cognition Motor: strength abnormal Extrem General: muscle atrophy Psych Appearance: disheveled Speech and Movement: restless Mood: anxious mood and dysthymic mood Affect: anxious affect Thought Process: impoverished and loose association Insight: poor Judgment: poor Other: Today I was able to have a conversation with Dandy. He looked to Gabbi for answers to many of my questions. He did ask what would happen to him if he chose no treatment. He is worried about having his pain controlled. His pain is well controlled today. Objective Objective Clinical Data: Vital Signs Temperature 98.1 F 11/20/19 11:40 Temperature Source Tympanic 11/20/19 11:40 Pulse 42 L 11/20/19 11:40 Pulse Rhythm Regular 11/20/19 08:30 Pulse 89 11/17/19 17:10 Respiratory Rate 16 11/20/19 11:40 Respiratory Effort 11/20/19 08:30 Respiratory Depth Shallow 11/20/19 08:30 Respiratory Pattern Normal 11/20/19 08:30 Blood Pressure 120/79 11/20/19 11:40 Blood Pressure Mean 27 11/17/19 16:35 Blood Pressure Position Sitting 11/17/19 11:24 Pulse Oximetry 92 L 11/20/19 12:29 Oxygen Delivery Method Nasal Cannula 11/20/19 12:29 Oxygen Flow Rate 1 11/20/19 12:29 Pain Level 0 11/20/19 11:40 Comment 11/20/19 07:26 Intake & Output 11/19/19 11/20/19 11/20/19 23:59 11:59 23:59 Intake Total 240 / 930 400 / 400 Output Total 920 / 1320 625 / 625 Balance -680 / -390 -225 / -225 Intake: Oral 240 / 930 400 / 400 Output: Urine 920 / 1320 625 / 625 Other: Urine Color Light Saloni Straw Urine Appearance Clear Clear Comment gauze dressing placed to cover stoma Stool Size Small Stool Characteristics Soft Liquid Brown Laboratory Results WBC 16.53 k/cumm (4.4-10.8) H 11/19/19 06:20 RBC 4.38 m/cumm (4.50-6.00) L 11/19/19 06:20 Hgb 12.5 g/dL (13.5-17.5) L 11/19/19 06:20 Hct 38.2 % (40.0-50.0) L 11/19/19 06:20 MCV 87.2 fL (80-95) 11/19/19 06:20 MCH 28.5 pg (27.0-33.0) 11/19/19 06:20 MCHC 32.7 g/dL (32.0-36.0) 11/19/19 06:20 RDW 14.8 % (11.8-14.1) H 11/19/19 06:20 Plt Count 273 x1000/uL (130-400) 11/19/19 06:20 MPV 10.1 fL (8.0-11.0) 11/19/19 06:20 Immature Gran % 0.5 % 11/17/19 11:30 Neutrophils % 86.6 11/17/19 11:30 Lymphocytes % 3.3 11/17/19 11:30 Monocytes % 9.3 11/17/19 11:30 Eosinophils % 0.3 11/17/19 11:30 Basophils % 0.0 11/17/19 11:30 Absolute Neutrophils 18.51 k/cumm (1.2-6.7) H 11/17/19 11:30 Absolute Lymphocytes 0.71 k/cumm (1.2-3.4) L 11/17/19 11:30 Absolute Monocytes 1.99 k/cumm (0.11-0.7) H 11/17/19 11:30 Absolute Eosinophils 0.06 k/cumm (0.0-0.7) 11/17/19 11:30 Absolute Basophils 0.00 k/cumm (0.0-0.2) 11/17/19 11:30 Differential Comment Agrees w/ instrument 11/17/19 11:30 RBC Morphology See below 11/17/19 11:30 Polychromasia Present 11/17/19 11:30 Poikilocytosis 1+ 11/17/19 11:30 Basophilic Stippling Present 11/17/19 11:30 PT 11.0 sec (9.3-11.0) 11/17/19 11:30 INR 1.1 (0.9-1.1) 11/17/19 11:30 Sodium 141 mmol/L (136-145) 11/19/19 06:20 Potassium 4.6 mmol/L (3.5-5.1) 11/19/19 06:20 Chloride 104 mmol/L (98-107) 11/19/19 06:20 Carbon Dioxide 30.0 mmol/L (21.0-32.0) 11/19/19 06:20 Anion Gap 7.0 mmol/L (3-11) 11/19/19 06:20 BUN 36 mg/dL (7-18) H D 11/19/19 06:20 Creatinine 1.25 mg/dL (0.70-1.30) 11/19/19 06:20 Estimated GFR/1.73 m2 55.72 (mL/min/1.73m2) 11/19/19 06:20 Glucose 120 mg/dL (74-106) H 11/19/19 06:20 Calcium 8.9 mg/dL (8.5-10.1) 11/19/19 06:20 Magnesium 1.8 mg/dL (1.8-2.4) 11/17/19 11:30 Total Bilirubin 0.7 mg/dL (0.2-1.0) 11/17/19 11:30 AST 20 U/L (15-37) 11/17/19 11:30 ALT 32 U/L (16-63) 11/17/19 11:30 Alkaline Phosphatase 198 U/L (46-116) H 11/17/19 11:30 Total Protein 6.3 g/dL (6.4-8.2) L 11/17/19 11:30 Albumin 2.3 g/dL (3.4-5.0) L 11/17/19 11:30 Urine Color Cancelled 11/17/19 12:04 Urine Clarity Cancelled 11/17/19 12:04 Urine pH Cancelled 11/17/19 12:04 Ur Specific Stella Cancelled 11/17/19 12:04 Urine Protein Cancelled 11/17/19 12:04 Urine Ketones Cancelled 11/17/19 12:04 Urine Blood Cancelled 11/17/19 12:04 Urine Nitrite Cancelled 11/17/19 12:04 Urine Bilirubin Cancelled 11/17/19 12:04 Urine Urobilinogen Cancelled 11/17/19 12:04 Ur Leukocyte Esterase Cancelled 11/17/19 12:04 Urine Glucose Cancelled 11/17/19 12:04
--- NOTE | 2019-11-20 16:18 | PGE_ITS ---
Date of Service Date of service: 11/20/19 Time of Service: 16:19 Assessment and Plan Assessment and plan (1) Metastatic cancer to spine: Status: Chronic Assessment and plan: Primary lung ca with mets to bone, uncontrollable pain at home. Pain improving on current regimen. Palliative care has seen patient, we have ordered hospice consult. He is currently on fentanyl patch w hich we will increase to 37 mg, continue po morphine solution for breakthrough pain, decadron 4 mg BID, gabapentin 1200 TID, and will discontinue MS contin. Will continue to monitor pain status and adjust as needed. palliative care consult, see DR Choudhury note (2) History of stroke with residual effects: Status: Chronic Assessment and plan: stable, after palliative care consult will discontinue asa, plavix and statin (3) Neurogenic bladder: Status: Acute Assessment and plan: patient and able to self cath (4) Discharge planning issues: Status: Acute Assessment and plan: plan to discharge home tomorrow. case management following. palliative care. He will receive new home health services, nursing, PT/OT medical office secretary. we have submitted for hospital bed with gel overlay for intractable pain, frequent repositioning and incontinence, patient will need termite control servicer home oxygen use due to lung cancer diagnosis with widespread metastasis and documented hypoxia on room air with sats in low 80's with symptomatic altered mental status/confusion/agitation Subjective Subjective Patient reports: still having pain and shortness of breath Interval history since last seen: found hypoxic with room air sats in low to mid 80s on room air. patient still requiring 2 assist for transfers. pain is better managed, only using 4 doses for breakthrough. Exam Const General: no acute distress, disheveled and ill appearing chronically Nutritional Appearance: cachectic Orientation: alert, oriented to person and confused (at times) Resp Effort & Inspection: normal respiratory effort Auscultation: diminished lung sounds Cardio Rate: regular rate Rhythm: regular rhythm GI Inspection: normal to inspection Palpation: soft Auscultation: normal bowel sounds Neuro General: alert and awake Cognition: abnormal cognition Extrem General: no pedal edema Objective Objective Clinical Data: Vital Signs Temperature 36.7 C 11/20/19 11:40 Temperature Source Tympanic 11/20/19 11:40 Pulse 42 L 11/20/19 11:40 Pulse Rhythm Regular 11/20/19 08:30 Pulse 89 11/17/19 17:10 Respiratory Rate 16 11/20/19 11:40 Respiratory Effort 11/20/19 08:30 Respiratory Depth Shallow 11/20/19 08:30 Respiratory Pattern Normal 11/20/19 08:30 Blood Pressure 120/79 11/20/19 11:40 Blood Pressure Mean 27 11/17/19 16:35 Blood Pressure Position Sitting 11/17/19 11:24 Pulse Oximetry 92 L 11/20/19 12:29 Oxygen Delivery Method Nasal Cannula 11/20/19 12:29 Oxygen Flow Rate 1 11/20/19 12:29 Pain Level 0 11/20/19 11:40 Comment 11/20/19 07:26 Intake & Output 11/19/19 11/20/19 11/20/19 23:59 11:59 23:59 Intake Total 240 / 930 400 / 400 Output Total 920 / 1320 625 / 625 Balance -680 / -390 -225 / -225 Intake: Oral 240 / 930 400 / 400 Output: Urine 920 / 1320 625 / 625 Other: Urine Color Light Saloni Straw Urine Appearance Clear Clear Comment gauze dressing placed to cover stoma Stool Size Small Stool Characteristics Soft Liquid Brown Laboratory Results WBC 16.53 k/cumm (4.4-10.8) H 11/19/19 06:20 RBC 4.38 m/cumm (4.50-6.00) L 11/19/19 06:20 Hgb 12.5 g/dL (13.5-17.5) L 11/19/19 06:20 Hct 38.2 % (40.0-50.0) L 11/19/19 06:20 MCV 87.2 fL (80-95) 11/19/19 06:20 MCH 28.5 pg (27.0-33.0) 11/19/19 06:20 MCHC 32.7 g/dL (32.0-36.0) 11/19/19 06:20 RDW 14.8 % (11.8-14.1) H 11/19/19 06:20 Plt Count 273 x1000/uL (130-400) 11/19/19 06:20 MPV 10.1 fL (8.0-11.0) 11/19/19 06:20 Immature Gran % 0.5 % 11/17/19 11:30 Neutrophils % 86.6 11/17/19 11:30 Lymphocytes % 3.3 11/17/19 11:30 Monocytes % 9.3 11/17/19 11:30 Eosinophils % 0.3 11/17/19 11:30 Basophils % 0.0 11/17/19 11:30 Absolute Neutrophils 18.51 k/cumm (1.2-6.7) H 11/17/19 11:30 Absolute Lymphocytes 0.71 k/cumm (1.2-3.4) L 11/17/19 11:30 Absolute Monocytes 1.99 k/cumm (0.11-0.7) H 11/17/19 11:30 Absolute Eosinophils 0.06 k/cumm (0.0-0.7) 11/17/19 11:30 Absolute Basophils 0.00 k/cumm (0.0-0.2) 11/17/19 11:30 Differential Comment Agrees w/ instrument 11/17/19 11:30 RBC Morphology See below 11/17/19 11:30 Polychromasia Present 11/17/19 11:30 Poikilocytosis 1+ 11/17/19 11:30 Basophilic Stippling Present 11/17/19 11:30 PT 11.0 sec (9.3-11.0) 11/17/19 11:30 INR 1.1 (0.9-1.1) 11/17/19 11:30 Sodium 141 mmol/L (136-145) 11/19/19 06:20 Potassium 4.6 mmol/L (3.5-5.1) 11/19/19 06:20 Chloride 104 mmol/L (98-107) 11/19/19 06:20 Carbon Dioxide 30.0 mmol/L (21.0-32.0) 11/19/19 06:20 Anion Gap 7.0 mmol/L (3-11) 11/19/19 06:20 BUN 36 mg/dL (7-18) H D 11/19/19 06:20 Creatinine 1.25 mg/dL (0.70-1.30) 11/19/19 06:20 Estimated GFR/1.73 m2 55.72 (mL/min/1.73m2) 11/19/19 06:20 Glucose 120 mg/dL (74-106) H 11/19/19 06:20 Calcium 8.9 mg/dL (8.5-10.1) 11/19/19 06:20 Magnesium 1.8 mg/dL (1.8-2.4) 11/17/19 11:30 Total Bilirubin 0.7 mg/dL (0.2-1.0) 11/17/19 11:30 AST 20 U/L (15-37) 11/17/19 11:30 ALT 32 U/L (16-63) 11/17/19 11:30 Alkaline Phosphatase 198 U/L (46-116) H 11/17/19 11:30 Total Protein 6.3 g/dL (6.4-8.2) L 11/17/19 11:30 Albumin 2.3 g/dL (3.4-5.0) L 11/17/19 11:30 Urine Color Cancelled 11/17/19 12:04 Urine Clarity Cancelled 11/17/19 12:04 Urine pH Cancelled 11/17/19 12:04 Ur Specific [place] Cancelled 11/17/19 12:04 Urine Protein Cancelled 11/17/19 12:04 Urine Ketones Cancelled 11/17/19 12:04 Urine Blood Cancelled 11/17/19 12:04 Urine Nitrite Cancelled 11/17/19 12:04 Urine Bilirubin Cancelled 11/17/19 12:04 Urine Urobilinogen Cancelled 11/17/19 12:04 Ur Leukocyte Esterase Cancelled 11/17/19 12:04 Urine Glucose Cancelled 11/17/19 12:04
--- NOTE | 2019-11-20 16:23 | INDS_ITS ---
Date of service: 11/20/19 Time of Service: 16:24 PT Notes Visit Reasons: PAIN CONTROL, LUNG CA, METS TO BONE Inpatient Physical Therapy Discharge Summary Dates: 11/20/2019 Dates of Service: 11/19/2019. 11/20/2019 hold on PT services per nursing. This is a clinical summary of care provided on the duration of dates listed above. No charge was made in the completion of this documentation. Patient Profile/Admitting Diagnosis: Pt is a 79-year-old male that presented to the ER on 11/17/2019 for worsening pain from known right neck mass. 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 PMHX: Metastatic Lung Cancer History of partial nephrectomy Agitation Paranoia History of CVA with residual effects Neuropathic pain Palliative care patient History of bladder cancer Cachexia History of renal carcinoma Neurogenic bladder Hyperlipidemia Social History/Home Situation: Pt lives at home with his , Gabbi, in [place]. Reports that there is one step onto a platform and one more step into the house. He notes that he is able to go up the stairs using his walker with his behind him. reports that the pt?s brother and [id number] live across the street and are able to help out when she is not able to be in the home. She says they have made an agreement that he will not leave the bed while she is out for her daily walk. Once in the home he is not required to negotiate stairs as he is able to stay in the bedroom downstairs with a nearby bathroom. He does not have a hospital bed at this time. also notes that the patient is able to shower and feed himself independently, however, requires assistance with dressing. Prior to hospitalization the pt did not require oxygen. Equipment Owned/DME: rollator and two-wheeled walker. Shower chair with suctioned UE support for assistance. Subjective: Per nursing the pt is being discharged to home via ambulance. The family will decide whether to continue with hospice on November 27 after oncology consultation. Objective: General Observation: NT Pain: NT ROM: Right Upper Extremity: Shoulder Flexion WFL. Shoulder abduction WFL. Elbow flexion WFL. Wrist flexion WFL. No volitional opening and closing of hand. Left Upper Extremity: Shoulder Flexion WFL. Shoulder abduction WFL. Elbow flexion WFL. Wrist flexion WFL. Opening and closing of hand WFL. Right Lower Extremity: Hip flexion WFL. Hip abduction WFL. Knee flexion WFL. Ankle dorsiflexion WFL. Ankle plantarflexion WFL. Left Lower Extremity: Hip flexion WFL. Hip abduction WFL. Knee flexion WFL. Ankle dorsiflexion WFL. Ankle plantarflexion WFL. Strength: Right Upper Extremity: Shoulder flexors 4+/5. Shoulder abductors 4+/5. Elbow flexors 5/5. Elbow extensors 5/5. Little volitional movement of finger flexors a nd extensors. Left Upper Extremity: Shoulder flexors 4+/5. Shoulder abductors 4+/5. Elbow flexors 5/5. Elbow extensors 5/5. Weak special forces officer strength, but functional. Right Lower Extremity: Hip flexors 5/5. Hip abductors 5/5. Knee flexors 5/5. Knee extensors 5/5. Ankle dorsiflexors 5/5. Ankle plantarflexors 5/5. Left Lower Extremity: Hip flexors 5/5. Hip abductors 5/5. Knee flexors 5/5. Knee extensors 5/5. Ankle dorsiflexors 5/5. Ankle plantarflexors 5/5. Sensation: Intact as to pain and pressure on bilateral lower extremities. Bed Mobility/Transfers: Rolling left Min A; unable to special forces officer with RUE Supine to sit Mod A Sit to supine SBA Sit to stand NT Stand to sit NT Bed to chair NT Chair to bed NT Gait: Not tested at the time of initial evaluation as the pt was fatigued following muscle testing while sitting on the edge of the bed. Balance: Static Sitting: Good Dynamic Sitting: Fair Static Standing: Poor Dynamic Standing: Poor Assessment: Pt is a 79-year-old male that presented to the ER on 11/17/2019 for worsening pain from known right neck mass. 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 Pt presented to physical therapy with impairment level findings as listed below. He also presented with a productive cough and impaired respiratory function making it difficult for him to lie flat in bed. Patient presented with clinical signs and symptoms consistent with current/admitting diagnoses that have resulted to mobility limitations, gait instability, generalized weakness, and impairment of motor control as demonstrated by the following impairment level findings: 1. Decreased strength to B LE and UE major muscle groups 2. Impaired function of the R hand 3. Impaired sitting/standing balance 4. Impaired activity tolerance 5. Impaired muscular endurance 6. Impaired cardiopulmonary function Impairments continue to contribute to the following functional limitations: 1. Dependent bed mobility skills 2. Increased dependence with transfers 3. Inability to safely ambulate without assistive device and physical assistance 4. Increase completion time for mobility ADL performance 5. Increased fall risk 6. Inability to negotiate steps alone safely Patient is assessed as a [id number] moderate complexity based on the following: History: Pt is a 79-year-old male that presented to the ER on 11/17/2019 for worsening pain from known right neck mass. 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 AM-PAC score of 17 with 50% deficit. Examination: Demonstrable impairment in strength, balance, and range of motion with underlying impairments and functional limitations as documented above Presentation: Evolving Decision Makin moderate complexity Goals: Goals X1 week 1. Supine-Sit Min A -NOT MET 2. Sit-Supine independent -NOT MET 3. Sit-Stand Min A -NOT MET 4. Stand-Sit independent -NOT MET 5. Bed-Chair Min A -NOT MET 6. Chair-Bed Min A -NOT MET 7. Independent gait on level surface with use of least restrictive device for at least 50 feet without report of pain nor dyspnea -NOT MET 8. Independent stair negotiation while holding onto bilateral rails for at least 4 steps without report of pain nor dyspnea -NOT MET 9. Independent with home exercise program -NOT MET 10. Good static and dynamic standing balance/tolerance -NOT MET DISCHARGE RECOMMENDATIONS: Pt is to be discharged to home with for 16/05 care once medically cleared. He would benefit from home health physical therapy as well as occupational therapy for improved mobility and independent function in the home. Recommend that the pt would benefit from a hospital bed in the home to assist with bed mobility and respiratory function with lying down. He would also benefit from transport wheelchair for mobility outside of the home due to decreased muscular endurance. Thank you very much for this referral. Carl Ortiz, RUBEN Doctor of Physical Therapy Student [facility] Supervision provided by Lucero Berman PT, DPT, CLT [facility] [place], [place]
[2019-11-20 16:39] VITALS: BP 131/67; PULSE 88; RESP 18; TEMP 36.6; O2SAT 93
[2019-11-20] MEDS: fentaNYL 25 MCG PATCH TD (16:42)
--- NOTE | 2019-11-20 17:40 | PDOC.CMPRO ---
Care Management Progress Note S/O: CM met with Dandy and Gabbi throughout the day, coordinated Palliative Consult, DME orders for Hospital Bed and Gel Overlay, VNA notification for home health supports through [facility]; RN/PT/OT/ADMINISTRATOR OF HOME HEALTH, and supported RT in coordination of new home O2. Dandy was able to engage fully with Dr. Choudhury but slept most of the morning. Gabbi advocated for Dandy returning home with VNA supports and will revisit Hospice discussion after meeting with [facility] on 11/27/19 if needed. A: Dandy is a 79 year old man admitted to [facility] 11/16/19 for pain control, Lung CA, Mets to bone P: Dandy will return home with new VNA services including RN, OT,PT and ADMINISTRATOR OF HOME HEALTH. [facility] Bed scheduled for delivery 11/26/19. Dandy will follow up with [facility] Oncology on 11/27/19 as well as Palliative Care (pain management), his PCP and discharge plan of care. CM will continue to support patient, family and discharge planning needs. Dandy will transport via EMS at 1100 tomorrow, 11/21/19.
[2019-11-20 23:41] VITALS: BP 151/96; PULSE 89; RESP 19; TEMP 36.9; O2SAT 93
[2019-11-21 07:50] VITALS: BP 143/96; PULSE 74; RESP 16; TEMP 36.5; O2SAT 98
[2019-11-21] MEDS: Escitalopram 10 MG TAB PO (08:55)
[2019-11-21] MEDS: Gabapentin 400 MG CAP 1200 MG PO (08:55)
[2019-11-21] MEDS: Dexamethasone 4 MG TAB PO (08:55)
[2019-11-21] MEDS: Famotidine 20 MG TAB PO (08:55)
[2019-11-21 10:11] VITALS: O2SAT 93
[2019-11-21] MEDS: fentaNYL 12 MCG PATCH TD (10:45)
--- NOTE | 2019-11-21 13:40 | CMDISCH_ITS ---
- If Service Date Differs Date of service: 11/21/19 Time of Service: 13:40 LACE Index Scoring Tool - Questions: Length of Stay (in days): 2 Acuity (Admit via E.D.?): Yes Comorbidities: Cerebrovascular Disease, Liver or Renal Disease, Metastatic Solid Tumor E.D. Visits: 1 - Answers: Total Score: 11 Risk of Readmission: High Risk Care Management Discharge Reason for Hospitalization: Lung cancer Discharge Plan: Dandy will be discharged home with new home health services of RN, PT, OT and INFORMATION SECURITY ENGINEER through [facility]. He will follow up with his providers at [facility] and have an initial evaluation with Medical Oncology next week. He will transport via ambulance with [facility]. Patient/Family Education Needs: Discharge plan, limitations, follow up plan, Ask Me Three.
== END 2019-11-21 10:55 | disposition home health service (06) | DRG 945 ==
LOC: ER 17:21 → MS 17:58
PROVIDERS: Nurse Practitioner Family; Admitting Provider Internal Medicine; Emergency Provider Emergency Medicine; PCP Internal Medicine; Visit Provider Family Medicine
DX: G89.3 Neoplasm related pain (acute) (chronic) (principal); C79.51 Secondary malignant neoplasm of bone; C34.90 Malignant neoplasm of unspecified part of unspecified bronchus or lung; R45.1 Restlessness and agitation; D38.0 Neoplasm of uncertain behavior of larynx; R09.02 Hypoxemia; R64 Cachexia; N31.8 Other neuromuscular dysfunction of bladder; Z68.22 Body mass index [BMI] 22.0-22.9, adult; Z85.53 Personal history of malignant neoplasm of renal pelvis; Z85.51 Personal history of malignant neoplasm of bladder; Z93.59 Other cystostomy status; E78.5 Hyperlipidemia, unspecified; Z87.891 Personal history of nicotine dependence; Z51.5 Encounter for palliative care; Z78.1 Physical restraint status
CPT/HCPCS: 36415; 70491; 74177; 80048; 80053; 85027; 96372; 96374; 96375; 96376; 97163; 97167; 99223; 99233; 99239; 99255; 99285; 70450; 71260; 72125; 81003; 83735; 85025; 85610; 99225; 99284; G0378; J1200; J1630; J3490; J8540; Q9967